=== PATIENT | female | born 1995 | race Caucasian/White ===

== ENCOUNTER 2016-10-26 15:08 | Outpatient (CLI) | payer MEDICAID ==
[2016-10-26 15:59] LABS: ABSOLUTE LYMPHOCYTES (AUTO) 1.9 10^3/uL (0.5-4.7); ABSOLUTE MONOCYTES (AUTO) 0.5 10^3/uL (0.1-1.4); ABSOLUTE NEUT (AUTO) 9.6 10^3/uL (1.7-8.2); BASOPHILS % (AUTO) 0.2 % (0-2); EOSINOPHILS % (AUTO) 0.3 % (0-6); HEMATOCRIT 33.6 % (36.0-47.0); HEMOGLOBIN 11.4 g/dL (12.0-15.5); HGB HCT DIFFERENCE 0.6; LYMPHOCYTES % (AUTO) 15.3 % (13-45); MEAN CORPUSCULAR HEMOGLOBIN 27.4 pg (27.0-33.4); MEAN CORPUSCULAR VOLUME 81 fl (80-97); MONOCYTES % (AUTO) 4.5 % (3-13); RED BLOOD COUNT 4.16 10^6/uL (3.72-5.28); RED CELL DISTRIBUTION WIDTH 13.6 % (11.5-14.0); SEGMENTED NEUTROPHILS % (AUTO) 79.7 % (42-78); WHITE BLOOD COUNT 12.1 10^3/uL (4.0-10.5)
[2016-10-26 16:13] LABS: APPEARANCE,URINE SLIGHTLY-CLOUDY; BILIRUBIN,URINE NEGATIVE (NEGATIVE); GLUCOSE, URINE NEGATIVE (NEGATIVE); KETONES,URINE NEGATIVE (NEGATIVE); LEUKOCYTE ESTERASE,URINE LARGE (NEGATIVE); NITRITE,URINE NEGATIVE (NEGATIVE); PROTEIN,URINE NEGATIVE (NEGATIVE); URINE SPECIFIC GRAVITY 1.011; UROBILINOGEN,URINE NEGATIVE mg/dL (<2.0)
[2016-10-26 16:16] LABS: ALANINE AMINOTRANSFERASE 26 U/L (9-52); ALBUMIN 3.7 g/dL (3.5-5.0); ALKALINE PHOSPHATASE 108 U/L (38-126); ANION GAP 14 (5-19); ASPARTATE AMINO TRANSFERASE 14 U/L (14-36); BILIRUBIN,DIRECT 0.2 mg/dL (0.0-0.4); BILIRUBIN,TOTAL 0.5 mg/dL (0.2-1.3); BLOOD UREA NITROGEN 5 mg/dL (7-20); CALCIUM 9.1 mg/dL (8.4-10.2); CARBON DIOXIDE 22 mmol/L (22-30); CHLORIDE 105 mmol/L (98-107); CREATININE RESULT 0.47 mg/dL (0.52-1.25); GLUCOSE 85 mg/dL (75-110); LDH 386 U/L (313-618); POTASSIUM 3.8 mmol/L (3.6-5.0); SODIUM 141.3 mmol/L (137-145); TOTAL PROTEIN 6.6 g/dL (6.3-8.2); URIC ACID 3.8 mg/dL (2.5-6.2)
[2016-10-26 16:23] LABS: URINE BARBITURATES SCREEN NEGATIVE; URINE METHADONE SCREEN NEGATIVE; URINE OPIATES LOW NEGATIVE; URINE PHENCYCLIDINE SCREEN NEGATIVE
--- NOTE | 2016-10-26 16:43 | Non Stress Test Report ---
Non Stress Test Datetime Report Generated by CPN: 10/26/2016 16:43 DEMOGRAPHIC EGA NST: 34.6 INDICATION Indication for Study: Other Indication for Study (NST) Other: pre-e workup MONITORING Monitor Explained: Monitor Explained; Test Explained; Patient Verbalized Understanding Time on Monitor: 10/26/2016 15:21 Time off Monitor: 10/26/2016 16:36 NST Duration: 75 NST INTERVENTIONS NST Interventions: None Physician Notified NST: Dr. Valenzuela BABY A: [id number] BABY A Movement : Present Contraction Frequency : none FHR Baseline : 140 Accelerations : 15X15 Decelerations : None Variability : Moderate 6-25bpm NST Review: Meets Criteria for Reactive NST NST Review and Verified By : Jake Barron RN NST Results: Reactive NST REPORT Report Trigger: Send Report
--- NOTE | 2016-10-26 19:50 | L&D Discharge Summary ---
OB Discharge Summary Datetime Report Generated by CPN: 10/26/2016 19:49 DISCHARGE DIAGNOSIS Diagnosis/Symptoms: Gestational Hypertension Diagnoses/Symptoms Other: IUP at 34.6, no pre-eclampsia Number of Babies in Womb: 1 Parity: 0 DIET/ACTIVITY/RESTRICTIONS Diet: Regular Activity: Normal Activity TEACHING/INSTRUCTIONS/REFERRALS Instructions Given To: patient and patient's mother Instructions Understood: Patient Verbalized Understanding; Support Person Verbalized Understanding Referrals: None Educational Materials- Other: kick counts, pre-eclampsia care notes given DISCHARGE INFORMATION Discharged AMA: No Discharge Date/Time: 10/26/2016 16:44 Discharged To: Home Discharge Provider Name: Chuy Petty CNM Accompanied By: mother and grandmother Discharge Method: Ambulatory Condition: Stable GENERAL INSTR-CALL PROVIDER IF: Contractions: Contractions or cramps become more frequent than 8 in one hour or 4 in 20 minutes; Regular painful contractions every 5 minutes or less for one hour. Time your contractions from the beginning of one to the beginning of the next Pressure: Pressure in your vagina or lower abdomen that may feel like the baby is pushing down Period Like Cramps: Period-like cramps or low dull backache that may come and go Cramps/Diarrhea: Abdominal cramps that may be accompanied by diarrhea Gush of Fluid/Blood: Gush of fluid or blood from your vagina (it is normal to have spotting after vaginal exam or intercourse) Vaginal Discharge: Change in the type or amount of vaginal discharge Decreased Movement: Your baby is not moving as much as usual- 4 movements in 1 hour after drinking and resting on side Temperature: Temperature greater than 100.0(F) orally
== END 2016-10-26 16:44 | disposition home or self-care (01) ==
LOC: LC 15:08
PROVIDERS: ATTEND Obstetrics & Gynecology
PROC: 4A1HXCZ Monitoring of Products of Conception, Cardiac Rate, External Approach (ICD-10-PCS; principal; 2016-10-26)
DX: O13.3 Gestational [pregnancy-induced] hypertension without significant proteinuria, third trimester (principal); Z3A.34 34 weeks gestation of pregnancy
CPT/HCPCS: 36415; 59025; 80053; 80307; 81001; 83615; 84550; 85025

== ENCOUNTER → 2016-11-01 | Outpatient (CLI) | payer MEDICAID ==
[2016-11-01 18:00] LABS: APPEARANCE,URINE SLIGHTLY-CLOUDY; BILIRUBIN,URINE NEGATIVE (NEGATIVE); GLUCOSE, URINE NEGATIVE (NEGATIVE); KETONES,URINE NEGATIVE (NEGATIVE); LEUKOCYTE ESTERASE,URINE LARGE (NEGATIVE); NITRITE,URINE NEGATIVE (NEGATIVE); PROTEIN,URINE NEGATIVE (NEGATIVE); URINE SPECIFIC GRAVITY 1.016; UROBILINOGEN,URINE NEGATIVE mg/dL (<2.0)
--- NOTE | 2016-11-01 18:02 | L&D Current Admission ---
Current Admit Datetime Report Generated by CPN: 11/01/2016 18:00 ADMISSION INFORMATION Chief Complaint: none (10/26/2016 15:36:HAWA Mclean
--- NOTE | 2016-11-01 18:02 | L&D General Admission ---
General Admit Datetime Report Generated by CPN: 11/01/2016 18:00 INFORMATION Patient Age: 21 (08/01/2016 12:26:QS system process) EDC: 12/01/2016 00:00 (10/26/2016 15:25:Priscila Barron RN) : 1 (10/26/2016 15:25:Priscila Barron RN) Para: 0 (10/26/2016 15:25:Priscila Barron RN) Term: 0 (10/26/2016 15:25:Priscila Barron RN) : 0 (10/26/2016 15:25:Priscila Barron RN) Spontaneous Abortions: 0 (10/26/2016 15:25:Priscila Barron RN) Induced Abortions: 0 (10/26/2016 15:25:Priscila Barron RN) Livin (10/26/2016 15:25:Priscila Barron RN) Cesareans: 0 (10/26/2016 15:25:Priscila Barron RN) VBACs: 0 (10/26/2016 15:25:Priscila Barron RN) Ectopic: 0 (10/26/2016 15:25:Priscila Barron RN) Multiple Births: 0 (10/26/2016 15:25:Priscila Barron RN) Baby, Number in Womb: 1 (10/26/2016 15:25:Priscila Barron RN) CARE Primary Electric Drill Operator: [facility] (10/26/2016 15:25:Priscila Barron RN) Month of 1st Visit: April (10/26/2016 15:25:Priscila Barron RN) Adequate Care: Yes (10/26/2016 15:25:Priscila Barron RN) Height (in): 69 (11/01/2016 17:38:QS system process) ALLERGIES Medication Allergy: No (10/26/2016 15:25:Priscila Barron RN) Medication Allergies: No Known Drug Allergies (11/01/2016) (11/01/2016 17:38:QS system process) Latex Allergy: No Latex Allergies (10/26/2016 15:25:Priscila Barron RN) Food Allergies: denies (10/26/2016 15:25:Priscila , RN) Environmental Allergies: denies (10/26/2016 15:25:Priscila Barron RN) COMMUNICATION Primary Language: Albanian (10/26/2016 15:25:Priscila Barron RN) Medical Tx Preferred Language: Albanian (10/26/2016 15:25:Priscila Barron RN) DEMOGRAPHICS Address: [address] [place] [id number] (08/01/2016 12:26:QS system process) Zipcode: [address] (08/01/2016 12:26:QS system process) Home (08/01/2016 12:26:QS system process) N: [phone] (08/01/2016 12:26:QS system process) Next of Kin Name: LIZA OBREGON (08/01/2016 12:26:QS system process) Next of Kin (08/01/2016 12:26:QS system process) Next of Kin Relationship: MO (08/01/2016 12:26:QS system process) Date of : 1995 (08/01/2016 12:26:QS system process) Marital Status: Single (08/01/2016 12:26:QS system process) Sex: Female (08/01/2016 12:26:QS system process) Race: (08/01/2016 12:26:QS system process) Ethnicity: Non- or (08/01/2016 12:26:QS system process) Adventism: Other (08/01/2016 12:26:QS system process) DRUG AND ALCOHOL USE Alcohol: No (10/26/2016 15:25:Priscila Barron RN) Marijuana: No (10/26/2016 15:25:Priscila Barron RN) Cocaine: No (10/26/2016 15:25:Priscila Barron RN) Other Illicit Drugs: No (10/26/2016 15:25:Priscila Barron RN) Tubal Ligation: No (10/26/2016 15:25:Priscila Barron RN) Tubal Authorization Signed: N/A (10/26/2016 15:25:Priscila Barron RN) Consent: N/A (10/26/2016 15:25:Priscila Barron RN) Consent Signed: N/A (10/26/2016 15:25:Priscila Barron RN) Cultural/Spritual Practice: No (10/26/2016 15:25:Priscila Barron RN) Spir/Cult Dietary Needs: No (10/26/2016 15:25:Priscila Barron RN) LABS Blood Type: O Positive (10/26/2016 15:25:Priscila Barron RN) Antibody Screen: negative (10/26/2016 15:25:Priscila Barron RN) Hemoglobin: 11.4 L (10/26/2016 15:50:QS system process) Hematocrit: 33.6 L (10/26/2016 15:50:QS system process) MCV: 81 (10/26/2016 15:50:QS system process) Gonorrhea: Negative (10/26/2016 15:25:Priscila Barron RN) Chlamydia: Negative (10/26/2016 15:25:rPiscila Barron RN) RPR/VDRL: Nonreactive (10/26/2016 15:25:Priscila Barron RN) Hepatitis B: Negative (10/26/2016 15:25:Priscila Barron RN) Rubella: Immune (10/26/2016 15:25:Priscila Barron RN) Rubella Titer: 8.71 (10/26/2016 15:25:Priscila Barron RN) Varicella Titer: 2699 (10/26/2016 15:25:Priscila Barron RN) OB/PREVIOUS HISTORY History of Previous : No (10/26/2016 15:25:Priscila Barron RN) History of Gestational Diabetes: No (10/26/2016 15:25:Priscila Barron RN) History of PIH: Yes (10/26/2016 15:25:Priscila Barron RN) History of Incompetent Cervix: No (10/26/2016 15:25:Priscila Barron RN) History of Placenta Previa/Abrup: No (10/26/2016 15:25:Priscila Barron RN) History of Macrosomia: No (10/26/2016 15:25:Priscila Barron RN) History of IUGR: No (10/26/2016 15:25:Priscila Barron RN) History of Hemorrhage: No (10/26/2016 15:25:Priscila Barron RN) History of Loss/Stillborn: No (10/26/2016 15:25:Priscila Barron RN) History of : No (10/26/2016 15:25:Priscila Barron RN) History of D (Rh) Sensitization: No (10/26/2016 15:25:Priscila Barron RN) History Recurrent Loss/Stillborn: No (10/26/2016 15:25:Priscila Barron RN) History Depression/PP Depression: No (10/26/2016 15:25:Priscila Barron RN) History of Uterine Anomaly/RUDDY: No (10/26/2016 15:25:Priscila Barron RN) History of Infertility: No (10/26/2016 15:25:Priscila Barron RN) History of ART Treatment: No (10/26/2016 15:25:Priscila Barron RN) History of RUDDY: No (10/26/2016 15:25:Priscila Barron RN) Comments Obstetrical History: G1: current (10/26/2016 15:25:Priscila Barron RN) MEDICAL HISTORY Med Hx Diabetes: No (10/26/2016 15:25:Priscila Barron RN) Med Hx Hypertension: No (10/26/2016 15:25:Priscila Barron RN) Med Hx Heart Disease: No (10/26/2016 15:25:Priscila Barron RN) Med Hx Autoimmune Disorder: No (10/26/2016 15:25:Priscila Barron RN) Med Hx Kidney Disease/UTI: No (10/26/2016 15:25:Priscila Barron RN) Med Hx Neurologic/Epilepsy: No (10/26/2016 15:25:Priscila Barron RN) Med Hx Psychiatric Disorders: No (10/26/2016 15:25:Priscila Barron RN) Med Hx Hepatitis/Liver Disease: No (10/26/2016 15:25:Priscila Barron RN) Med Hx Varicosities/Phlebitis: No (10/26/2016 15:25:Priscila Barron RN) Med Hx Thyroid Dysfunction: No (10/26/2016 15:25:Priscila Barron RN) Med Hx Trauma/Violence: No (10/26/2016 15:25:Priscila Barron RN) Med Hx Blood Transfusion: No (10/26/2016 15:25:Priscila Barron RN) Med Hx Pulmonary (Asthma,TB): No (10/26/2016 15:25:Priscila Barron RN) Med Hx Breast: No (10/26/2016 15:25:Priscila Barron RN) Med Hx PLASTIC DOLLS MOLD FILLER Surgery: No (10/26/2016 15:25:Priscila Barron RN) Med Hx Hospitalization/Surgery: No (10/26/2016 15:25:Priscila Barron RN) Med Hx Anesthetic Complications: No (10/26/2016 15:25:Priscila Barron RN) Med Hx Abnormal Pap Smear: No (10/26/2016 15:25:Priscila Barron RN) Other Medical Diseases: No (10/26/2016 15:25:Priscila Barron RN) Med Hx Significant Family Hx: No (10/26/2016 15:25:Priscila Barron RN) INFECTIOUS HISTORY Inf Hx Gonorrhea: No (10/26/2016 15:25:Priscila Barron RN) Inf Hx Chlamydia: No (10/26/2016 15:25:Priscila Barron RN) Inf Hx Syphilis: No (10/26/2016 15:25:Priscila Barron RN) Inf Hx HIV/AIDS: No (10/26/2016 15:25:Priscila Barron RN) Inf Hx Human Papilloma Virus: No (10/26/2016 15:25:Priscila Barron RN) Inf Hx Pt/Partner Genital Herpes: No (10/26/2016 15:25:Priscila Barron RN) Inf Hx Tuberculosis/Exposure: No (10/26/2016 15:25:Priscila Barron RN) Inf Hx Hepatitis B,C: No (10/26/2016 15:25:Priscila Barron RN) Inf Hx Rash or Viral Illness: No (10/26/2016 15:25:Priscila Barron RN) GENETIC HISTORY Gen Hx Age >=35 at MARS: No (10/26/2016 15:25:Priscila Barron RN) Gen Hx Thalassemia: No (10/26/2016 15:25:Priscila Barron RN) Gen Hx Congenital Heart Defect: No (10/26/2016 15:25:Priscila Barron RN) Gen Hx Neural Tube Defect: No (10/26/2016 15:25:Priscila Barron RN) Gen Hx Down's Syndrome: No (10/26/2016 15:25:Priscila Barron RN) Gen Hx Monroe-Sachs: No (10/26/2016 15:25:Priscila Barron RN) Gen Hx Wiley: No (10/26/2016 15:25:Priscila Barron RN) Gen Hx Familial Dysautonomia: No (10/26/2016 15:25:Priscila Barron RN) Gen Hx Sickle Cell Disease/Trait: No (10/26/2016 15:25:Priscila Barron RN) Gen Hx Hemophilia/Blood Disorder: No (10/26/2016 15:25:Priscila Barron RN) Gen Hx Muscular Dystrophy: No (10/26/2016 15:25:Priscila Barron RN) Gen Hx Cystic Fibrosis: No (10/26/2016 15:25:Priscila Barron RN) Gen Hx Huntingtons Chorea: No (10/26/2016 15:25:Priscila Barron RN) Gen Hx Mental Retardation/Autism: No (10/26/2016 15:25:Priscila Barron RN) Gen Hx Tested for Fragile X: No (10/26/2016 15:25:Priscila Barron RN) Gen Hx Other Inher/Chromosomal: No (10/26/2016 15:25:Priscila Barron RN) Gen Hx Maternal Metabolic DO: No (10/26/2016 15:25:Priscila Barron RN) Gen Hx Pt Father or FOB Defect: No (10/26/2016 15:25:Priscila Barron RN) Gen Hx Other Genetic History: No (10/26/2016 15:25:Priscila Barron RN) Gen Hx Drugs/Meds since LMP: No (10/26/2016 15:25:Priscila Barron RN)
[2016-11-01 18:11] LABS: ABSOLUTE MONOCYTES (AUTO) 0.5 10^3/uL (0.1-1.4); ABSOLUTE NEUT (AUTO) 10.1 10^3/uL (1.7-8.2); BASOPHILS % (AUTO) 0.3 % (0-2); EOSINOPHILS % (AUTO) 0.2 % (0-6); HEMATOCRIT 33.9 % (36.0-47.0); HEMOGLOBIN 11.5 g/dL (12.0-15.5); HGB HCT DIFFERENCE 0.6; LYMPHOCYTES % (AUTO) 15.8 % (13-45); MEAN CORPUSCULAR HEMOGLOBIN 27.5 pg (27.0-33.4); MEAN CORPUSCULAR VOLUME 81 fl (80-97); MONOCYTES % (AUTO) 4.1 % (3-13); RED BLOOD COUNT 4.19 10^6/uL (3.72-5.28); RED CELL DISTRIBUTION WIDTH 13.7 % (11.5-14.0); SEGMENTED NEUTROPHILS % (AUTO) 79.6 % (42-78); WHITE BLOOD COUNT 12.7 10^3/uL (4.0-10.5)
[2016-11-01 18:14] LABS: URINE BARBITURATES SCREEN NEGATIVE; URINE METHADONE SCREEN NEGATIVE; URINE OPIATES LOW NEGATIVE; URINE PHENCYCLIDINE SCREEN NEGATIVE
[2016-11-01 18:28] LABS: ALANINE AMINOTRANSFERASE 21 U/L (9-52); ALKALINE PHOSPHATASE 127 U/L (38-126); ANION GAP 13 (5-19); ASPARTATE AMINO TRANSFERASE 15 U/L (14-36); BILIRUBIN,DIRECT 0.1 mg/dL (0.0-0.4); BILIRUBIN,TOTAL 0.4 mg/dL (0.2-1.3); BLOOD UREA NITROGEN 4 mg/dL (7-20); CALCIUM 9.5 mg/dL (8.4-10.2); CARBON DIOXIDE 21 mmol/L (22-30); CHLORIDE 107 mmol/L (98-107); CREATININE RESULT 0.43 mg/dL (0.52-1.25); GLUCOSE 104 mg/dL (75-110); LDH 398 U/L (313-618); POTASSIUM 3.4 mmol/L (3.6-5.0); SODIUM 141.1 mmol/L (137-145); TOTAL PROTEIN 6.7 g/dL (6.3-8.2); URIC ACID 3.6 mg/dL (2.5-6.2)
--- NOTE | 2016-11-01 20:01 | L&D Flow Sheet ---
LD Flowsheet Datetime Report Generated by CPN: 11/01/2016 20:00 Datetime: 11/01/2016 18:25 NBP Sys/Angela/Mean (mmHg): 136 (QS system process) : 82 (QS system process) : 102 (QS system process) Pulse: 104 (QS system process) LaborFlag: OB Triage (QS system process) Datetime: 11/01/2016 18:10 NBP Sys/Angela/Mean (mmHg): 133 (QS system process) : 76 (QS system process) : 99 (QS system process) Pulse: 98 (QS system process) LaborFlag: OB Triage (QS system process) Datetime: 11/01/2016 17:55 NBP Sys/Angela/Mean (mmHg): 129 (QS system process) : 78 (QS system process) : 100 (QS system process) Pulse: 101 (QS system process) LaborFlag: OB Triage (QS system process) Datetime: 11/01/2016 17:40 NBP Sys/Angela/Mean (mmHg): 150 (QS system process) : 79 (QS system process) : 109 (QS system process) Pulse: 100 (QS system process) LaborFlag: OB Triage (QS system process) Datetime: 11/01/2016 17:25 Monitor Interventions for UA: [place] Adjusted (Priscila Barron RN) Frequency (min): none (Priscila Barron RN) Monitor Mode: External US (Priscila Barron RN) Pain Scale: 0 (Priscila Barron RN) Pain Presence: None/Denies (Priscila Barron RN) Pain Type: N/A (Priscila Barron RN) Pain Goal: 1 (Priscila Barron RN) Membrane Status: Intact (Annotations: intact per patient) (Priscila Barron RN) Vaginal Bleeding: None (Priscila Barron RN) Level of Consciousness: Fully Conscious (Priscila Barron RN) DTR's/Clonus: DTRs 2+; No Clonus (Priscila Barron RN) Headache: Denies (Priscila Barron RN) Breath Sounds, Left: Clear and Equal (Priscila Barron RN) Breath Sounds, Right: Clear and Equal (Priscila Barron RN) Nausea/Vomiting: Denies (Priscila Barron RN) RUQ Epigastric Pain: Denies (Priscila Barron, JIM) Oxygen Method: Room Air (Priscila Barron, RN) Patient Position/Activity: Right Tilt (Priscila Barron RN) Plan of Care: Plan of Care Discussed (Priscila Barron RN) Unit Routine: [place] to Room; Call [place]; Bed (Priscila Barron RN) LaborFlag: OB Triage (QS system process) Datetime: 11/01/2016 17:24 NBP Sys/Angela/Mean (mmHg): 155 (QS system process) : 92 (QS system process) : 117 (QS system process) Pulse: 114 (QS system process) Communication Comments: patient sent from [facility] for pre-eclampia workup. Patient's NST was reactive in office, order received from Rio Morillo CNM for patient to be left off monitor. Order placed for pre-eclampia labs and serial blood pressures (Priscila Barron RN) LaborFlag: OB Triage (QS system process) Datetime: 11/01/2016 17:00 Stage of : OB Triage (Priscila Barron RN)
== END ==
LOC: LC 17:08
PROVIDERS: ATTEND Obstetrics & Gynecology
PROC: 4A1HXCZ Monitoring of Products of Conception, Cardiac Rate, External Approach (ICD-10-PCS; principal; 2016-11-01)
DX: Z34.93 Encounter for supervision of normal pregnancy, unspecified, third trimester (principal); Z36 Encounter for antenatal screening of mother; Z3A.35 35 weeks gestation of pregnancy
CPT/HCPCS: 36415; 80053; 80307; 81001; 83615; 84550; 85025

== ENCOUNTER 2016-11-09 22:05 | Inpatient (IN) | payer MEDICAID ==
[2016-11-09 22:48] LABS: ABSOLUTE EOSINOPHILS # (AUTO) 0.1 10^3/uL (0.0-0.6); ABSOLUTE LYMPHOCYTES (AUTO) 1.6 10^3/uL (0.5-4.7); ABSOLUTE MONOCYTES (AUTO) 0.8 10^3/uL (0.1-1.4); ABSOLUTE NEUT (AUTO) 9.1 10^3/uL (1.7-8.2); BASOPHILS % (AUTO) 0.1 % (0-2); EOSINOPHILS % (AUTO) 0.7 % (0-6); HEMATOCRIT 32.7 % (36.0-47.0); HGB HCT DIFFERENCE 0.3; LYMPHOCYTES % (AUTO) 13.7 % (13-45); MEAN CORPUSCULAR HEMOGLOBIN 26.9 pg (27.0-33.4); MEAN CORPUSCULAR HGB CONC 33.5 g/dL (32.0-36.0); MEAN CORPUSCULAR VOLUME 80 fl (80-97); MONOCYTES % (AUTO) 7.2 % (3-13); RED BLOOD COUNT 4.07 10^6/uL (3.72-5.28); RED CELL DISTRIBUTION WIDTH 13.3 % (11.5-14.0); SEGMENTED NEUTROPHILS % (AUTO) 78.3 % (42-78); WHITE BLOOD COUNT 11.6 10^3/uL (4.0-10.5)
[2016-11-09 22:57] LABS: APPEARANCE,URINE CLOUDY; BILIRUBIN,URINE NEGATIVE (NEGATIVE); GLUCOSE, URINE NEGATIVE (NEGATIVE); KETONES,URINE NEGATIVE (NEGATIVE); LEUKOCYTE ESTERASE,URINE MODERATE (NEGATIVE); NITRITE,URINE NEGATIVE (NEGATIVE); PROTEIN,URINE NEGATIVE (NEGATIVE); URINE SPECIFIC GRAVITY 1.016; UROBILINOGEN,URINE NEGATIVE mg/dL (<2.0)
[2016-11-09 23:12] LABS: URINE BARBITURATES SCREEN NEGATIVE; URINE METHADONE SCREEN NEGATIVE; URINE OPIATES LOW NEGATIVE; URINE PHENCYCLIDINE SCREEN NEGATIVE
[2016-11-09] MEDS ORDERED: ZOLPIDEM TARTRATE 5 MG TABLET PO PRN (23:19)
[2016-11-09] MEDS ORDERED: DINOPROSTONE 10 MG VAGINAL INSERT.SR PV ONE (23:19)
[2016-11-09] MEDS ORDERED: MAG HYDROX/AL HYDROX/SIMETH SUSP 30 ML UDCUP PO PRN (23:19)
[2016-11-09] MEDS ORDERED: OXYTOCIN/NORMAL SALINE 1,000 ML IV PRN (23:19)
[2016-11-09] MEDS ORDERED: ACETAMINOPHEN 325 MG TABLET PO PRN (23:19)
[2016-11-09] MEDS ORDERED: DINOPROSTONE 10 MG VAGINAL INSERT.SR ONE (23:20)
[2016-11-09] MEDS: RINGERS SOLUTION,LACTATED 1,000 ML IV PRN (23:42)
[2016-11-09] MEDS ORDERED: RINGERS SOLUTION,LACTATED 300 ML IV ONE (23:45)
[2016-11-10] MEDS ORDERED: PENICILLIN G-K 5 MILLION UNIT VIAL IV ONE (06:28)
[2016-11-10] MEDS ORDERED: PENICILLIN G-K 5 MILLION UNIT VIAL ONE ×2 (06:35→10:34)
[2016-11-10] MEDS: RINGERS SOLUTION,LACTATED 1,000 ML IV PRN (06:40)
--- NOTE | 2016-11-10 08:01 | L&D Flow Sheet ---
LD Flowsheet Datetime Report Generated by CPN: 11/10/2016 08:00 Datetime: 11/10/2016 07:54 Hygiene: Underpad Changed (Milagros Camp, RNC) I/O Interventions: Up to BR (Milagros Camp, RNC) Datetime: 11/10/2016 07:52 Monitor Interventions for FHR: Ultrasound Adjusted (Milagros Camp, RNC) Comments: RN at bedside adjusting monitor, bladder distention noted. (Milagros Camp, RNC) Datetime: 11/10/2016 07:30 Monitor Mode: External; Palpation (Priscila Barron, RN) Frequency (min): 6-8 (Priscila Barron, RN) Quality: Mild (Priscila , RN) Duration (sec): 70-80 (Priscila , RN) Duration Criteria: Less than Two 120 Second Contractions (Priscila , RN) Pattern: Normal: <= 5 Contractions in 10 Minutes (Priscila , RN) Resting Tone (Palpate): Relaxed (Priscilaabby Barron, RN) Contraction Comments: irritability (Priscila Barron, RN) Monitor Mode: External US (Priscila Barron, RN) FHR Baseline Rate : 140 (Priscila , RN) FHR Baseline Changes: No Baseline Change (Priscila , RN) Variability: Moderate 6-25 bpm (Priscila , RN) Accelerations: 10X10 (Priscila , RN) Decelerations: None (Priscila , RN) Datetime: 11/10/2016 07:29 Level of Consciousness: Fully Conscious (Priscila Barron, RN) DTR's/Clonus: DTRs 2+; No Clonus (Priscila , RN) Headache: Denies (Priscila Barron RN) Breath Sounds, Left: Clear and Equal (Priscila Barron RN) Breath Sounds, Right: Clear and Equal (Priscila Barron RN) Nausea/Vomiting: Denies (Priscila Barron RN) RUQ Epigastric Pain: Denies (Priscila Barron, RN) Datetime: 11/10/2016 07:28 NBP Sys/Angela/Mean (mmHg): 108 (QS system process) : 57 (QS system process) : 79 (QS system process) Pulse: 87 (QS system process) LaborFlag: Labor (QS system process) Datetime: 11/10/2016 07:17 Communication: Report Given to @ Annika Barron RN (Petra Torres RN) Datetime: 11/10/2016 07:00 Monitor Mode: External (Petra Ledgerwood, RN) Frequency (min): occas (Petra Ledgerwood, RN) Quality: Mild (Petra Ledgerwood, RN) Duration (sec): 60-80 (Petra Ledgerwood, RN) Duration Criteria: Less than Two 120 Second Contractions (Petra Ledgerwood, RN) Pattern: Normal: <= 5 Contractions in 10 Minutes (Petra Ledgerwood, RN) Resting Tone (Palpate): Relaxed (Petra Ledgerwood, RN) Monitor Mode: External US (Petra Ledgerwood, RN) FHR Baseline Rate : 145 (Petra Ledgerwood, RN) FHR Baseline Changes: No Baseline Change (Petra Ledgerwood, RN) Variability: Moderate 6-25 bpm (Petra Ledgerwood, RN) Accelerations: 15X15 (Petra Ledgerwood, RN) Decelerations: None (Petra Ledgerwood, RN) Datetime: 11/10/2016 06:57 NBP Sys/Angela/Mean (mmHg): 109 (QS system process) : 52 (QS system process) : 74 (QS system process) Pulse: 90 (QS system process) LaborFlag: Labor (QS system process) Datetime: 11/10/2016 06:40 Antibiotics: Penicillin IV (Units) @ [id number] (Petra Ledgerwood, RN) Datetime: 11/10/2016 06:30 Monitor Mode: External (Petra Ledgerwood, RN) Frequency (min): x1 (Petra Ledgerwood, RN) Quality: Mild (Petra Ledgerwood, RN) Duration (sec): 90 (Petra Ledgerwood, RN) Duration Criteria: Less than Two 120 Second Contractions (Petra Ledgerwood, RN) Resting Tone (Palpate): Relaxed (Petra Ledgerwood, RN) Monitor Mode: External US (Petra Ledgerwood, RN) FHR Baseline Rate : 135 (Petra Ledgerwood, RN) FHR Baseline Changes: No Baseline Change (Petra Ledgerwood, RN) Variability: Moderate 6-25 bpm (Petra Ledgerwood, RN) Accelerations: 15X15 (Petra Ledgerwood, RN) Decelerations: None (Petra Ledgerwood, RN) Datetime: 11/10/2016 06:27 NBP Sys/Angela/Mean (mmHg): 103 (QS system process) : 58 (QS system process) : 75 (QS system process) Pulse: 93 (QS system process) Respirations: 14 (Petra Ledgerwood, RN) LaborFlag: Labor (QS system process) Datetime: 11/10/2016 06:00 Monitor Mode: External (Petra Ledgerwood, RN) Frequency (min): none (Petra Ledgerwood, RN) Resting Tone (Palpate): Relaxed (Petra Ledgerwood, RN) Monitor Mode: External US (Petra Ledgerwood, RN) FHR Baseline Rate : 130 (Petra Ledgerwood, RN) FHR Baseline Changes: No Baseline Change (Petra Ledgerwood, RN) Variability: Moderate 6-25 bpm (Petra Ledgerwood, RN) Accelerations: None (Petra Ledgerwood, RN) Decelerations: None (Petra Ledgerwood, RN) Datetime: 11/10/2016 05:57 NBP Sys/Angela/Mean (mmHg): 107 (QS system process) : 57 (QS system process) : 77 (QS system process) Pulse: 89 (QS system process) LaborFlag: Labor (QS system process) Datetime: 11/10/2016 05:30 Monitor Mode: External (Petra Ledgerwood, RN) Frequency (min): occas (Petra Ledgerwood, RN) Quality: Mild (Petra Ledgerwood, RN) Duration (sec): 60-70 (Petra Ledgerwood, RN) Duration Criteria: Less than Two 120 Second Contractions (Petra Ledgerwood, RN) Pattern: Normal: <= 5 Contractions in 10 Minutes (Petra Ledgerwood, RN) Resting Tone (Palpate): Relaxed (Petra Ledgerwood, RN) Monitor Mode: External US (Petra Ledgerwood, RN) FHR Baseline Rate : 125 (Petra Ledgerwood, RN) FHR Baseline Changes: No Baseline Change (Petra Ledgerwood, RN) Variability: Moderate 6-25 bpm (Petra Ledgerwood, RN) Accelerations: 10X10 (Petra Ledgerwood, RN) Decelerations: None (Petra Ledgerwood, RN) Datetime: 11/10/2016 05:27 NBP Sys/Angela/Mean (mmHg): 109 (QS system process) : 56 (QS system process) : 76 (QS system process) Pulse: 90 (QS system process) LaborFlag: Labor (QS system process) Datetime: 11/10/2016 05:00 Monitor Mode: External (Petra Ledgerwood, RN) Frequency (min): irritability (Petra Ledgerwood, RN) Quality: Mild (Petra Ledgerwood, RN) Resting Tone (Palpate): Relaxed (Petra Ledgerwood, RN) Monitor Mode: External US (Petra Ledgerwood, RN) FHR Baseline Rate : 135 (Petra Ledgerwood, RN) FHR Baseline Changes: No Baseline Change (Petra Ledgerwood, RN) Variability: Moderate 6-25 bpm (Petra Ledgerwood, RN) Accelerations: 15X15 (Petra Ledgerwood, RN) Decelerations: None (Petra Ledgerwood, RN) Datetime: 11/10/2016 04:57 NBP Sys/Angela/Mean (mmHg): 120 (QS system process) : 58 (QS system process) : 83 (QS system process) Pulse: 90 (QS system process) LaborFlag: Labor (QS system process) Datetime: 11/10/2016 04:30 Monitor Mode: External (Petra Ledgerwood, RN) Frequency (min): occas (Petra Ledgerwood, RN) Quality: Mild (Petra Ledgerwood, RN) Duration (sec): 60-80 (Petra Ledgerwood, RN) Duration Criteria: Less than Two 120 Second Contractions (Petra Ledgerwood, RN) Pattern: Normal: <= 5 Contractions in 10 Minutes (Petra Ledgerwood, RN) Resting Tone (Palpate): Relaxed (Petra Ledgerwood, RN) Monitor Mode: External US (Petra Ledgerwood, RN) FHR Baseline Rate : 130 (Petra Ledgerwood, RN) FHR Baseline Changes: No Baseline Change (Petra Ledgerwood, RN) Variability: Moderate 6-25 bpm (Petra Ledgerwood, RN) Accelerations: 15X15 (Petra Ledgerwood, RN) Decelerations: None (Petra Ledgerwood, RN) Datetime: 11/10/2016 04:27 NBP Sys/Angela/Mean (mmHg): 113 (QS system process) : 65 (QS system process) : 82 (QS system process) Pulse: 86 (QS system process) LaborFlag: Labor (QS system process) Datetime: 11/10/2016 04:00 Monitor Mode: External (Petra Ledgerwood, RN) Frequency (min): none (Petra Ledgerwood, RN) Resting Tone (Palpate): Relaxed (Petra Ledgerwood, RN) Monitor Mode: External US (Petra Ledgerwood, RN) FHR Baseline Rate : 125 (Petra Ledgerwood, RN) FHR Baseline Changes: No Baseline Change (Petra Ledgerwood, RN) Variability: Moderate 6-25 bpm (Petra Ledgerwood, RN) Accelerations: 15X15 (Petra Ledgerwood, RN) Decelerations: None (Petra Ledgerwood, RN) Datetime: 11/10/2016 03:57 NBP Sys/Angela/Mean (mmHg): 118 (QS system process) : 57 (QS system process) : 82 (QS system process) Pulse: 86 (QS system process) LaborFlag: Labor (QS system process) Datetime: 11/10/2016 03:30 Monitor Mode: External (Petra Ledgerwood, RN) Frequency (min): irritability (Petra Ledgerwood, RN) Quality: Mild (Petra Ledgerwood, RN) Resting Tone (Palpate): Relaxed (Petra Ledgerwood, RN) Monitor Mode: External US (Petra Ledgerwood, RN) FHR Baseline Rate : 125 (Petra Ledgerwood, RN) FHR Baseline Changes: No Baseline Change (Petra Ledgerwood, RN) Variability: Moderate 6-25 bpm (Petra Ledgerwood, RN) Accelerations: 10X10 (Petra Ledgerwood, RN) Decelerations: None (Petra Ledgerwood, RN) Datetime: 11/10/2016 03:28 NBP Sys/Angela/Mean (mmHg): 118 (QS system process) : 58 (QS system process) : 81 (QS system process) Pulse: 85 (QS system process) LaborFlag: Labor (QS system process) Datetime: 11/10/2016 03:00 Monitor Mode: External (Petra Ledgerwood, RN) Frequency (min): occas (Petra Ledgerwood, RN) Quality: Mild (Petra Ledgerwood, RN) Duration (sec): 60-70 (Petra Ledgerwood, RN) Duration Criteria: Less than Two 120 Second Contractions (Petar Ledgerwood, RN) Pattern: Normal: <= 5 Contractions in 10 Minutes (Petra Ledgerwood, RN) Resting Tone (Palpate): Relaxed (Petra Ledgerwood, RN) Contraction Comments: occasional contractions with uteral irritability (Petra Ledgerwood, RN) Monitor Mode: External US (Petra Ledgerwood, RN) FHR Baseline Rate : 120 (Petra Ledgerwood, RN) FHR Baseline Changes: No Baseline Change (Petra Ledgerwood, RN) Variability: Moderate 6-25 bpm (Petra Ledgerwood, RN) Accelerations: 10X10 (Petra Ledgerwood, RN) Decelerations: None (Petra Ledgerwood, RN) Datetime: 11/10/2016 02:57 NBP Sys/Angela/Mean (mmHg): 119 (QS system process) : 57 (QS system process) : 81 (QS system process) Pulse: 90 (QS system process) LaborFlag: Labor (QS system process) Datetime: 11/10/2016 02:30 Monitor Mode: External (Petra Ledgerwood, RN) Frequency (min): irreg (Petra Ledgerwood, RN) Quality: Mild (Petra Ledgerwood, RN) Duration (sec): 60-90 (Petra Ledgerwood, RN) Duration Criteria: Less than Two 120 Second Contractions (Petra Ledgerwood, RN) Pattern: Normal: <= 5 Contractions in 10 Minutes (Petra Ledgerwood, RN) Resting Tone (Palpate): Relaxed (Petra Ledgerwood, RN) Monitor Mode: External US (Petra Ledgerwood, RN) FHR Baseline Rate : 140 (Petra Ledgerwood, RN) FHR Baseline Changes: No Baseline Change (Petra Ledgerwood, RN) Variability: Moderate 6-25 bpm (Petra Ledgerwood, RN) Accelerations: 15X15 (Petra Ledgerwood, RN) Decelerations: None (Petra Ledgerwood, RN) Datetime: 11/10/2016 02:27 NBP Sys/Angela/Mean (mmHg): 118 (QS system process) : 67 (QS system process) : 87 (QS system process) Pulse: 86 (QS system process) LaborFlag: Labor (QS system process) Datetime: 11/10/2016 02:00 Monitor Mode: External (Petra Ledgerwood, RN) Frequency (min): irreg (Petra Ledgerwood, RN) Quality: Mild (Petra Ledgerwood, RN) Duration (sec): 70-80 (Petra Ledgerwood, RN) Duration Criteria: Less than Two 120 Second Contractions (Petra Ledgerwood, RN) Pattern: Normal: <= 5 Contractions in 10 Minutes (Petra Ledgerwood, RN) Resting Tone (Palpate): Relaxed (Petra Ledgerwood, RN) Monitor Mode: External US (Petra Ledgerwood, RN) FHR Baseline Rate : 130 (Petra Ledgerwood, RN) FHR Baseline Changes: No Baseline Change (Petra Ledgerwood, RN) Variability: Moderate 6-25 bpm (Petra Ledgerwood, RN) Accelerations: 15X15 (Petra Ledgerwood, RN) Decelerations: None (Petra Ledgerwood, RN) Datetime: 11/10/2016 01:57 NBP Sys/Angela/Mean (mmHg): 116 (QS system process) : 61 (QS system process) : 82 (QS system process) Pulse: 87 (QS system process) LaborFlag: Labor (QS system process) Datetime: 11/10/2016 01:30 Monitor Mode: External (Petra Ledgerwood, RN) Frequency (min): irreg (Petra Ledgerwood, RN) Quality: Mild (Petra Ledgerwood, RN) Duration (sec): 60-80 (Petra Ledgerwood, RN) Duration Criteria: Less than Two 120 Second Contractions (Petra Ledgerwood, RN) Pattern: Normal: <= 5 Contractions in 10 Minutes (Petra Ledgerwood, RN) Resting Tone (Palpate): Relaxed (Petra Ledgerwood, RN) Monitor Mode: External US (Petra Ledgerwood, RN) FHR Baseline Rate : 135 (Petra Ledgerwood, RN) FHR Baseline Changes: No Baseline Change (Petra Ledgerwood, RN) Variability: Moderate 6-25 bpm (Petra Ledgerwood, RN) Accelerations: 15X15 (Petra Ledgerwood, RN) Decelerations: None (Petra Ledgerwood, RN) Datetime: 11/10/2016 01:28 NBP Sys/Angela/Mean (mmHg): 116 (QS system process) : 65 (QS system process) : 83 (QS system process) Pulse: 90 (QS system process) LaborFlag: Labor (QS system process) Datetime: 11/10/2016 01:00 Monitor Mode: External (Petra Ledgerwood, RN) Frequency (min): irreg (Petra Ledgerwood, RN) Quality: Mild (Petra Ledgerwood, RN) Duration (sec): 50-90 (Petra Ledgerwood, RN) Duration Criteria: Less than Two 120 Second Contractions (Petra Ledgerwood, RN) Pattern: Normal: <= 5 Contractions in 10 Minutes (Petra Ledgerwood, RN) Resting Tone (Palpate): Relaxed (Petra Ledgerwood, RN) Monitor Mode: External US (Petra Ledgerwood, RN) FHR Baseline Rate : 130 (Petra Ledgerwood, RN) FHR Baseline Changes: No Baseline Change (Petra Ledgerwood, RN) Variability: Moderate 6-25 bpm (Petra Ledgerwood, RN) Accelerations: 10X10 (Petra Ledgerwood, RN) Decelerations: None (Petra Ledgerwood, RN) Datetime: 11/10/2016 00:57 NBP Sys/Angela/Mean (mmHg): 113 (QS system process) : 55 (QS system process) : 74 (QS system process) Pulse: 86 (QS system process) LaborFlag: Labor (QS system process) Datetime: 11/10/2016 00:30 Monitor Mode: External (Petra Ledgerwood, RN) Frequency (min): x2 (Petra Ledgerwood, RN) Quality: Mild (Petra Ledgerwood, RN) Duration (sec): 80-90 (Petra Ledgerwood, RN) Duration Criteria: Less than Two 120 Second Contractions (Petra Ledgerwood, RN) Pattern: Normal: <= 5 Contractions in 10 Minutes (Petra Ledgerwood, RN) Resting Tone (Palpate): Relaxed (Petra Ledgerwood, RN) Monitor Mode: External US (Petra Ledgerwood, RN) FHR Baseline Rate : 135 (Petra Ledgerwood, RN) FHR Baseline Changes: No Baseline Change (Petra Ledgerwood, RN) Variability: Moderate 6-25 bpm (Petra Ledgerwood, RN) Accelerations: 10X10 (Petra Ledgerwood, RN) Decelerations: None (Petra Ledgerwood, RN) Datetime: 11/10/2016 00:29 NBP Sys/Angela/Mean (mmHg): 109 (QS system process) : 75 (QS system process) : 87 (QS system process) Pulse: 94 (QS system process) LaborFlag: Labor (QS system process) Datetime: 11/10/2016 00:24 Patient Care Comments: Ultrasound performed on pt. to verify that baby is in vertex position. (Petra Ledgerwood, RN) Datetime: 11/10/2016 00:23 Communication: Provider at Bedside (Petra Ledgerwood, RN) Communication Comments: Dr Dietrich at bedside (Petra Ledgerwood, RN) Datetime: 11/10/2016 00:00 Monitor Mode: External (Petra Ledgerwood, RN) Frequency (min): none (Petra Ledgerwood, RN) Resting Tone (Palpate): Relaxed (Petra Ledgerwood, RN) Monitor Mode: External US (Petra Ledgerwood, RN) FHR Baseline Rate : 135 (Petra Ledgerwood, RN) FHR Baseline Changes: No Baseline Change (Petra Ledgerwood, RN) Variability: Moderate 6-25 bpm (Petra Ledgerwood, RN) Accelerations: 10X10 (Petra Ledgerwood, RN) Decelerations: None (Petra Ledgerwood, RN) Datetime: 11/09/2016 23:57 NBP Sys/Angela/Mean (mmHg): 137 (QS system process) : 85 (QS system process) : 104 (QS system process) Pulse: 96 (QS system process) LaborFlag: Labor (QS system process) Datetime: 11/09/2016 23:35 Cervical Ripening Agents: Cervidil (Petra Torres, RN) Datetime: 11/09/2016 23:34 Dilatation (cm): 0.5 (Petra Torres, RN) Effacement (%): 50 (Petra Torres, RN) Station: -2 (Petra Torres, RN) Exam by: Leonarda Torres RN (Petra Torres, RN) Datetime: 11/09/2016 23:30 Monitor Mode: External (Petra Ledgerwood, RN) Frequency (min): none (Petra Ledgerwood, RN) Resting Tone (Palpate): Relaxed (Petra Ledgerwood, RN) Monitor Mode: External US (Petra Ledgerwood, RN) FHR Baseline Rate : 140 (Petra Ledgerwood, RN) FHR Baseline Changes: No Baseline Change (Petra Ledgerwood, RN) Variability: Moderate 6-25 bpm (Petra Ledgerwood, RN) Accelerations: 15X15 (Petra Ledgerwood, RN) Decelerations: None (Petra Ledgerwood, RN) Datetime: 11/09/2016 23:27 NBP Sys/Angela/Mean (mmHg): 146 (QS system process) : 90 (QS system process) : 112 (QS system process) Pulse: 104 (QS system process) LaborFlag: Labor (QS system process) Datetime: 11/09/2016 23:05 Procedures: Consents Signed (Petra Ledgerwood, RN) Datetime: 11/09/2016 23:00 Monitor Mode: External (Petra Ledgerwood, RN) Frequency (min): none (Petra Ledgerwood, RN) Resting Tone (Palpate): Relaxed (Petra Ledgerwood, RN) Contraction Comments: no contractions noted during palpation, pt reported no contractions. (Petra Ledgerwood, RN) Monitor Mode: External US (Petra Ledgerwood, RN) FHR Baseline Rate : 150 (Petra Ledgerwood, RN) FHR Baseline Changes: No Baseline Change (Petra Ledgerwood, RN) Variability: Moderate 6-25 bpm (Petra Ledgerwood, RN) Accelerations: 15X15 (Petra Ledgerwood, RN) Decelerations: None (Petra Ledgerwood, RN) Datetime: 11/09/2016 22:57 NBP Sys/Angela/Mean (mmHg): 141 (QS system process) : 92 (QS system process) : 111 (QS system process) Pulse: 104 (QS system process) LaborFlag: Labor (QS system process) Datetime: 11/09/2016 22:45 Pain Scale: 0 (Petra Torres RN) Pain Presence: None/Denies (Petra Torres, JIM) Vaginal Bleeding: None (Petra Torres, RN) Level of Consciousness: Fully Conscious (Petra Torres RN) DTR's/Clonus: DTRs 2+; No Clonus (Petra Torres, RN) Headache: Denies (Petra Torres, RN) Breath Sounds, Left: Clear and Equal (Petra Torres RN) Breath Sounds, Right: Clear and Equal (Petra Torres RN) Nausea/Vomiting: Denies (Petra Torres, RN) RUQ Epigastric Pain: Denies (Petra Torres, RN) IV/Blood Work: IV Started; IV Bolus Started (Debbie Navas RN) Patient Care Comments: 18 g started in R forearm with first attempt. (Debbie Navas RN) Instructional Method: Demo; Verbal; Patient Instructed (Petra Torres RN) Plan of Care: Plan of Care Discussed; Vaginal Delivery; Labor; Induction (Petra Torres RN) Unit Routine: [place] to Room; Call C[place]; Bed; Visiting Policy; Waiting Areas; Handwashing; Monitoring; Safety/Fall Risk Prevention (Petra Torres RN) LaborFlag: Labor (QS system process) Datetime: 11/09/2016 22:27 NBP Sys/Angela/Mean (mmHg): 120 (QS system process) : 81 (QS system process) : 96 (QS system process) Pulse: 112 (QS system process) LaborFlag: Labor (QS system process) Datetime: 11/09/2016 22:15 Stage of : Labor (Petra Torres RN)
[2016-11-10] MEDS ORDERED: MISOPROSTOL 0.1 MG TABLET ONE ×2 (13:19→18:29)
--- NOTE | 2016-11-10 18:02 | L&D General Admission ---
General Admit Datetime Report Generated by CPN: 11/10/2016 18:00 INFORMATION Patient Age: 21 (08/01/2016 12:26:QS system process) EDC: 12/01/2016 00:00 (10/26/2016 15:25:Priscila Barron RN) : 1 (10/26/2016 15:25:Priscila Barron RN) Para: 0 (10/26/2016 15:25:Priscila Barron RN) Term: 0 (10/26/2016 15:25:Priscila Barron RN) : 0 (10/26/2016 15:25:Priscila Barron RN) Spontaneous Abortions: 0 (10/26/2016 15:25:Priscila Barron RN) Induced Abortions: 0 (10/26/2016 15:25:Priscila Barron RN) Livin (10/26/2016 15:25:Priscila Barron RN) Cesareans: 0 (10/26/2016 15:25:Priscila Barron RN) VBACs: 0 (10/26/2016 15:25:Priscila Barron RN) Ectopic: 0 (10/26/2016 15:25:Priscila Barron RN) Multiple Births: 0 (10/26/2016 15:25:Priscila Barron RN) Baby, Number in Womb: 1 (10/26/2016 15:25:Priscila Barron RN) CARE Primary Examiner Rating Clerk: [facility] (10/26/2016 15:25:Priscila Barron RN) Month of 1st Visit: April (10/26/2016 15:25:Priscila Barron RN) Adequate Care: Yes (10/26/2016 15:25:Priscila Barron RN) Height (in): 69 (11/10/2016 11:46:QS system process) ALLERGIES Medication Allergy: No (10/26/2016 15:25:Priscila Barron RN) Medication Allergies: No Known Drug Allergies (11/10/2016) (11/10/2016 00:21:QS system process) Latex Allergy: No Latex Allergies (10/26/2016 15:25:Priscila Barron RN) Food Allergies: denies (10/26/2016 15:25:Priscila , RN) Environmental Allergies: denies (10/26/2016 15:25:Priscila Barron RN) COMMUNICATION Primary Language: Botswanan (10/26/2016 15:25:Priscila Barron RN) Medical Tx Preferred Language: Botswanan (10/26/2016 15:25:Priscila Barron RN) DEMOGRAPHICS Address: [address] [place] [id number] (11/01/2016 18:42:QS system process) Zipcode: [address] (08/01/2016 12:26:QS system process) Home (08/01/2016 12:26:QS system process) N: [phone] (08/01/2016 12:26:QS system process) Next of Kin Name: LIZA OBREGON (08/01/2016 12:26:QS system process) Next of Kin (08/01/2016 12:26:QS system process) Next of Kin Relationship: MO (08/01/2016 12:26:QS system process) Date of : 1995 (08/01/2016 12:26:QS system process) Marital Status: Single (08/01/2016 12:26:QS system process) Sex: Female (08/01/2016 12:26:QS system process) Race: (08/01/2016 12:26:QS system process) Ethnicity: Non- or (08/01/2016 12:26:QS system process) Taoism: Other (08/01/2016 12:26:QS system process) DRUG AND ALCOHOL USE Alcohol: No (10/26/2016 15:25:Priscila Barron RN) Cigarettes: Never Smoker. [id number] (10/26/2016 15:25:Petra Torres RN) Marijuana: No (10/26/2016 15:25:Priscila Barron RN) Cocaine: No (10/26/2016 15:25:Priscila Barron RN) Other Illicit Drugs: No (10/26/2016 15:25:Priscila Barron RN) VACCINE HISTORY Influenza Vaccine: Yes (10/26/2016 15:25:Petra Torres RN) Continuing Education Dean: [facility] (10/26/2016 15:25:Petra Torres RN) Feeding Preference: Breast (10/26/2016 15:25:Petra Torres RN) Circumcision: N/A (10/26/2016 15:25:Petra Torres RN) Classes Attended: No (10/26/2016 15:25:Petra Torres RN) Tubal Ligation: No (10/26/2016 15:25:Priscila Barron RN) Tubal Authorization Signed: N/A (10/26/2016 15:25:Priscila Barron RN) Consent: N/A (10/26/2016 15:25:Priscila Barron RN) Consent Signed: N/A (10/26/2016 15:25:Priscila Barron RN) Pain Management Plans: Epidural (10/26/2016 15:25:Petra Torres RN) Plans for Labor and Delivery: None (10/26/2016 15:25:Petra Torres RN) Support Person: Walter (10/26/2016 15:25:Petra Torres RN) Support Person Relationship: Significant Other (10/26/2016 15:25:Petra Torres RN) Cultural/Spritual Practice: No (10/26/2016 15:25:Priscila Barron RN) Spir/Cult Dietary Needs: No (10/26/2016 15:25:Priscila Barron RN) LIVING SITUATION/DISCHARGE PLAN Living Arrangements: House (10/26/2016 15:25:Petra Torres RN) Adequate Access to:: Electric; Heat; Refrigeration; Plumbing/Running water; Phone; Transportation (10/26/2016 15:25:Petra Torres RN) WIC Program: No (10/26/2016 15:25:Petra Torres RN) Discharge Automotive Alignment Specialist Person: Mother (10/26/2016 15:25:Petra Torres RN) Person to Help after Discharge: Mother (10/26/2016 15:25:Petra Torres RN) Currently Using Commun Resources: Yes (10/26/2016 15:25:Petra Torres RN) Specify Current Resource Used: medicaid (10/26/2016 15:25:Petra Torres RN) Outside Agency/Pesticide Applicator: No (10/26/2016 15:25:Petra Torres RN) Car Seat for Discharge: Yes (10/26/2016 15:25:Petra Torres RN) Adoption Requested: No (10/26/2016 15:25:Petra Torres RN) Pt Contact w/ Post : N/A (10/26/2016 15:25:Petra Torres RN) LABS Blood Type: O Positive (10/26/2016 15:25:Priscila Barron RN) Antibody Screen: negative (10/26/2016 15:25:Priscila Barron RN) Hemoglobin: 11.0 L (11/09/2016 22:35:QS system process) Hematocrit: 32.7 L (11/09/2016 22:35:QS system process) MCV: 80 (11/09/2016 22:35:QS system process) Group Beta Strep: positive (10/26/2016 15:25:Viviana Willams RN) Gonorrhea: Negative (10/26/2016 15:25:Priscila Barron RN) Chlamydia: Negative (10/26/2016 15:25:Priscila Barron RN) RPR/VDRL: Nonreactive (10/26/2016 15:25:Priscila Barron RN) HIV Exposure Test: Negative (10/26/2016 15:25:JOHN Motley) HIV Results: neg (10/26/2016 15:25:JOHN Motley) Hepatitis B: Negative (10/26/2016 15:25:Priscila Barron RN) Rubella: Immune (10/26/2016 15:25:Priscila Barron RN) Rubella Titer: 8.71 (10/26/2016 15:25:Priscila Barron RN) Varicella Titer: 2699 (10/26/2016 15:25:Priscila Barron RN) OB/PREVIOUS HISTORY Current Procedures: Ultrasound (10/26/2016 15:25:Petra Torres RN) History of Previous : No (10/26/2016 15:25:Priscila Barron RN) History of Gestational Diabetes: No (10/26/2016 15:25:Priscila Barron RN) History of PIH: No (10/26/2016 15:25:Petra Torres RN) History of Incompetent Cervix: No (10/26/2016 15:25:Priscila Barron RN) History of Placenta Previa/Abrup: No (10/26/2016 15:25:Priscila Barron RN) History of Macrosomia: No (10/26/2016 15:25:Priscila Barron RN) History of IUGR: No (10/26/2016 15:25:Priscila Barron RN) History of Hemorrhage: No (10/26/2016 15:25:Priscila Barron RN) History of Loss/Stillborn: No (10/26/2016 15:25:Priscila Barron RN) History of : No (10/26/2016 15:25:Priscila Barron RN) History of D (Rh) Sensitization: No (10/26/2016 15:25:Priscila Barron RN) History Recurrent Loss/Stillborn: No (10/26/2016 15:25:Priscila Barron RN) History Depression/PP Depression: No (10/26/2016 15:25:Priscila Barron RN) History of Uterine Anomaly/RUDDY: No (10/26/2016 15:25:Priscila Barron RN) History of Infertility: No (10/26/2016 15:25:Priscila Barron RN) History of ART Treatment: No (10/26/2016 15:25:Priscila Barron RN) History of RUDDY: No (10/26/2016 15:25:Priscila Barron RN) Comments Obstetrical History: G1: current (10/26/2016 15:25:Priscila Barron RN) MEDICAL HISTORY Med Hx Diabetes: No (10/26/2016 15:25:Priscila Barron RN) Med Hx Hypertension: Yes (10/26/2016 15:25:Viviana Willams RN) Med Hx Heart Disease: No (10/26/2016 15:25:Priscila Barron RN) Med Hx Autoimmune Disorder: No (10/26/2016 15:25:Priscila Barron RN) Med Hx Kidney Disease/UTI: No (10/26/2016 15:25:Priscila Barron RN) Med Hx Neurologic/Epilepsy: No (10/26/2016 15:25:Priscila Barron RN) Med Hx Psychiatric Disorders: No (10/26/2016 15:25:Priscila Barron RN) Med Hx Hepatitis/Liver Disease: No (10/26/2016 15:25:Priscila Barron RN) Med Hx Varicosities/Phlebitis: No (10/26/2016 15:25:Priscila Barron RN) Med Hx Thyroid Dysfunction: No (10/26/2016 15:25:Priscila Barron RN) Med Hx Trauma/Violence: No (10/26/2016 15:25:Priscila Barron RN) Med Hx Blood Transfusion: No (10/26/2016 15:25:Priscila Barron RN) Med Hx Pulmonary (Asthma,TB): No (10/26/2016 15:25:Priscila Barron RN) Med Hx Breast: No (10/26/2016 15:25:Priscila Barron RN) Med Hx ELECTROPLATING LABORER Surgery: No (10/26/2016 15:25:Priscila Barron RN) Med Hx Hospitalization/Surgery: No (10/26/2016 15:25:Priscila Barorn RN) Med Hx Anesthetic Complications: No (10/26/2016 15:25:Priscila Barron RN) Med Hx Abnormal Pap Smear: No (10/26/2016 15:25:Priscila Barron RN) Other Medical Diseases: No (10/26/2016 15:25:Priscila Barron RN) Med Hx Significant Family Hx: No (10/26/2016 15:25:Priscila Barron RN) Details of Med/Surg Hx: g1: ghtn (10/26/2016 15:25:Viviana Willams RN) INFECTIOUS HISTORY Inf Hx Gonorrhea: No (10/26/2016 15:25:Priscila Barron RN) Inf Hx Chlamydia: No (10/26/2016 15:25:Priscila Barron RN) Inf Hx Syphilis: No (10/26/2016 15:25:Priscila Barron RN) Inf Hx HIV/AIDS: No (10/26/2016 15:25:Priscila Barron RN) Inf Hx Human Papilloma Virus: No (10/26/2016 15:25:Priscila Barron RN) Inf Hx Pt/Partner Genital Herpes: No (10/26/2016 15:25:Priscila Barron RN) Inf Hx Tuberculosis/Exposure: No (10/26/2016 15:25:Priscila Barron RN) Inf Hx Hepatitis B,C: No (10/26/2016 15:25:Priscila Barron RN) Inf Hx Rash or Viral Illness: No (10/26/2016 15:25:Priscila Barron RN) GENETIC HISTORY Gen Hx Age >=35 at MARS: No (10/26/2016 15:25:Priscila Barron RN) Gen Hx Thalassemia: No (10/26/2016 15:25:Priscila Barron RN) Gen Hx Congenital Heart Defect: No (10/26/2016 15:25:Priscila Barron RN) Gen Hx Neural Tube Defect: No (10/26/2016 15:25:Priscila Barron RN) Gen Hx Down's Syndrome: No (10/26/2016 15:25:Priscila Barron RN) Gen Hx Monroe-Sachs: No (10/26/2016 15:25:Priscila Barron RN) Gen Hx Wiley: No (10/26/2016 15:25:Priscila Barron RN) Gen Hx Familial Dysautonomia: No (10/26/2016 15:25:Priscila Barron RN) Gen Hx Sickle Cell Disease/Trait: No (10/26/2016 15:25:Priscila Barron RN) Gen Hx Hemophilia/Blood Disorder: No (10/26/2016 15:25:Priscila Barron RN) Gen Hx Muscular Dystrophy: No (10/26/2016 15:25:Priscila Barron RN) Gen Hx Cystic Fibrosis: No (10/26/2016 15:25:Priscila Barron RN) Gen Hx Huntingtons Chorea: No (10/26/2016 15:25:Priscila Barron RN) Gen Hx Mental Retardation/Autism: No (10/26/2016 15:25:Priscila Barron RN) Gen Hx Tested for Fragile X: No (10/26/2016 15:25:Priscila Barron RN) Gen Hx Other Inher/Chromosomal: No (10/26/2016 15:25:Priscila Barron RN) Gen Hx Maternal Metabolic DO: No (10/26/2016 15:25:Priscila Barron RN) Gen Hx Pt Father or FOB Defect: No (10/26/2016 15:25:Priscila Barron RN) Gen Hx Other Genetic History: No (10/26/2016 15:25:rPiscila Barron RN) Gen Hx Drugs/Meds since LMP: No (10/26/2016 15:25:Priscila Barron RN)
--- NOTE | 2016-11-10 18:02 | L&D Current Admission ---
Current Admit Datetime Report Generated by CPN: 11/10/2016 18:00 ADMISSION INFORMATION Current Admit Date/Time: 11/09/2016 22:54 (11/09/2016 22:54:Petra Torres RN) Reason for Admission: Induction of Labor (11/09/2016 22:54:Petra Torres RN) Chief Complaint: Scheduled Induction of Labor (11/09/2016 22:45:Petra Torres RN) EGA per Dates: 36.6 (11/09/2016 22:54:QS system process) Method of Arrival: Ambulatory (11/09/2016 22:54:Petra Torres RN) Reason for Induction: Gestational Hypertension (11/09/2016 22:54:Petra Torres RN) Records Available: Yes (11/09/2016 22:54:Petra Torres RN) General Admission Information: Reviewed (11/09/2016 22:54:Petra Torres RN) BELONGINGS/ADVANCED DIRECTIVES Other Belongings: see belonging consent (11/09/2016 22:54:Petra Torres RN) Disposition of Belongings: Kept with Patient (11/09/2016 22:54:Petra Torres RN) Advance Direct for Healthcare: No, and Wants No Information (11/09/2016 22:54:Petra Torres RN) Durable Power of In Flight Refueling System Repairer: No (11/09/2016 22:54:Petra Torres RN) Living Will: No (11/09/2016 22:54:Petra Torres RN) Organ Donor: Yes (11/09/2016 22:54:Petra Torres RN) Pt Rights Information Given: Yes (11/09/2016 22:54:Petra Torres RN) Pt Understands Pt Rights: Yes (11/09/2016 22:54:Petra Torres RN) LEARNING ASSESSMENT Knowledge Level: Understands L_D Process; Understands Care Activities; Understands Diagnosis (11/09/2016 22:54:Petra Torres RN) Barriers to Learning: None (11/09/2016 22:54:Petra Torres RN) Learning Readiness: Motivated (11/09/2016 22:54:Petra Torres RN) Learns Best By: 1 to 1 Instruction (11/09/2016 22:54:Petra Torres RN) Learning Needs: Labor and Delivery Process; Pain Management; Symptoms to Report; Treatment Plan; Medication; Diagnosis; Nutrition; Equipment; Infant Care; Community Resources (11/09/2016 22:54:Petra Torres RN) DOMESTIC VIOLANCE SCREENING Dom Viol Threatened/Hurt: No (11/09/2016 22:54:Petra Torres RN) Hx of Abuse/Neglect past 2yrs: No (11/09/2016 22:54:Petra Torres RN) Feel Unsafe Going Home: No (11/09/2016 22:54:Petra Torres RN) Addt'l Observ Indicating Abuse: No (11/09/2016 22:54:Petra Torres RN) Reason Unable to Complete Screen: N/A, Screen Completed (11/09/2016 22:54:Petra Torres RN) Considered Personal Harm/Suicide: No (11/09/2016 22:54:Petra Torres RN) NUTRITIONAL/FUNCTIONAL SCREENING Problem with Appetite >5 Days: No (11/09/2016 22:54:Petra Torres RN) Chew/Swallow Difficulties: No (11/09/2016 22:54:Petra Torres RN) Inappropriate Wt Gain/Loss: No (11/09/2016 22:54:Petra Torres RN) Presence Skin Breakdown/Ulcer: No (11/09/2016 22:54:Petra Torres RN) Special Diet: No (11/09/2016 22:54:Petra Torres RN) Pt Requests [employer] Manager Visit: No (11/09/2016 22:54:Petra Torres RN) Hx of Any of the Following?: N/A (11/09/2016 22:54:Petra Torres RN) New Diagnosis of: N/A (11/09/2016 22:54:Petra Torres RN) Requires Assist w/Ambulation: No (11/09/2016 22:54:Petra Torres RN) Uses Assist Device to Ambulate: No (11/09/2016 22:54:Petra Torres RN) Pt Requires Help w/ADL's: No (11/09/2016 22:54:Petra Torres RN)
[2016-11-10 19:53] LABS: ABSOLUTE EOSINOPHILS # (AUTO) 0.1 10^3/uL (0.0-0.6); ABSOLUTE LYMPHOCYTES (AUTO) 1.9 10^3/uL (0.5-4.7); ABSOLUTE MONOCYTES (AUTO) 0.9 10^3/uL (0.1-1.4); ABSOLUTE NEUT (AUTO) 10.4 10^3/uL (1.7-8.2); BASOPHILS % (AUTO) 0.3 % (0-2); EOSINOPHILS % (AUTO) 0.9 % (0-6); HEMATOCRIT 34.3 % (36.0-47.0); HEMOGLOBIN 11.4 g/dL (12.0-15.5); HGB HCT DIFFERENCE -0.1; MEAN CORPUSCULAR HEMOGLOBIN 26.8 pg (27.0-33.4); MEAN CORPUSCULAR HGB CONC 33.3 g/dL (32.0-36.0); MEAN CORPUSCULAR VOLUME 81 fl (80-97); MONOCYTES % (AUTO) 6.5 % (3-13); RED BLOOD COUNT 4.25 10^6/uL (3.72-5.28); RED CELL DISTRIBUTION WIDTH 13.6 % (11.5-14.0); SEGMENTED NEUTROPHILS % (AUTO) 78.3 % (42-78); WHITE BLOOD COUNT 13.2 10^3/uL (4.0-10.5)
--- NOTE | 2016-11-10 20:02 | L&D Flow Sheet ---
LD Flowsheet Datetime Report Generated by CPN: 11/10/2016 20:00 Datetime: 11/10/2016 19:33 IV/Blood Work: Labs Drawn (Courtney Mancia, RN) Patient Care Comments: [facility] lab drawns (Courtney Mancia, RN) Datetime: 11/10/2016 19:30 Level of Consciousness: Fully Conscious (Courtney Mancia, RN) DTR's/Clonus: DTRs 2+; No Clonus (Courtney Mancia RN) Headache: Denies (Courtney Mancia, JIM) Breath Sounds, Left: Clear and Equal (Courtney Mancia, RN) Breath Sounds, Right: Clear and Equal (Courtney Mancia, RN) Nausea/Vomiting: Denies (Courtney Mancia RN) RUQ Epigastric Pain: Denies (Courtneyherbert Mancia, RN) Datetime: 11/10/2016 19:10 Communication Comments: Report received from JIM Damon. David assummed (Courtney Mancia RN) Datetime: 11/10/2016 19:07 Monitor Mode: External (Briseyda Bellavance, RNC) Monitor Interventions for UA: [place] Adjusted (Briseyda Bellavance, RNC) Frequency (min): 4-5 (Briseyda Bellavance, RNC) Quality: Mild (Briseyda Bellavance, RNC) Duration (sec): 40-60 (Briseyda Bellavance, RNC) Resting Tone (Palpate): Relaxed (Briseyda Bellavance, RNC) Monitor Mode: External US (Briseyda Bellavance, RNC) Monitor Interventions for FHR: Ultrasound Adjusted (Briseyda Bellavance, RNC) FHR Baseline Rate : 135 (Briseyda Bellavance, RNC) Variability: Moderate 6-25 bpm (Briseyda Bellavance, RNC) Accelerations: 15X15 (Briseyda Bellavance, RNC) Decelerations: None (Briseyda Bellavance, RNC) Level of Consciousness: Fully Conscious (Briseyda Bellavance, RNC) IV/Blood Work: IV Infusing per Order (Briseyda Bellavance, RNC) Patient Position/Activity: Semi-Fowlers (Briseyda Bellavance, RNC) Comfort Measures: Family Support (Briseyda Bellavance, RNC) Datetime: 11/10/2016 18:38 NBP Sys/Angela/Mean (mmHg): 136 (QS system process) : 90 (QS system process) : 107 (QS system process) Pulse: 99 (QS system process) Respirations: 16 (Briseyda Bellavance, RNC) Temperature (F): 99.0 (Briseyda Bellavance, RNC) Temperature (C): 37.2 (QS system process) Temperature Route: Oral (Briseyda Bellavance, RNC) Monitor Mode: External (Briseyda Bellavance, RNC) Monitor Interventions for UA: [place] Adjusted (Briseyda Bellavance, RNC) Frequency (min): 2-3 (Briseyda Bellavance, RNC) Quality: Mild (Briseyda Bellavance, RNC) Duration (sec): 40-60 (Briseyda Bellavance, RNC) Resting Tone (Palpate): Relaxed (Briseyda Damon, RNC) Monitor Mode: External US (Briseyda Damon RNC) Monitor Interventions for FHR: Ultrasound Adjusted (Briseyda Damon, RNC) FHR Baseline Rate : 135 (Briseyda Damon, RNC) Variability: Moderate 6-25 bpm (Briseyda Damon, RNC) Accelerations: 15X15 (Briseyda Damon, RNC) Decelerations: None (Briseyda Damon, RNC) Pain Scale: 0 (Briseyda Damon, RNC) Dilatation (cm): 1.0 (Briseyda Damon, RNC) Effacement (%): 0 (Briseyda Damon, RNC) Station: -2 (Briseyda Damon, RNC) Exam by: Sosa Damon RNC (Briseyda Damon, RNC) Membrane Status: Intact (Briseyda Damon, RNC) Level of Consciousness: Fully Conscious (Briseyda Damon, RNC) DTR's/Clonus: DTRs 2+ (Briseyda Damon, RNC) Headache: Denies (Briseyda Damon, RNC) Nausea/Vomiting: Denies (Briseyda Damon, RNC) RUQ Epigastric Pain: Denies (Briseyda Damon, RNC) Cervical Ripening Agents: Cytotec @ (Annotations: 25 mg po and 25 mg pv) (Briseyda Damon, RNC) IV/Blood Work: IV Infusing per Order (Briseyda Damon, RNC) Patient Position/Activity: Semi-Fowlers (Briseyda Damon, RNC) Comfort Measures: Family Support (Briseyda Damon, RNC) LaborFlag: Labor (QS system process) Datetime: 11/10/2016 17:32 Additional Nursing Comments: iv to saline lock and monitors off Dinner ordered (Briseyda Bellavance, RNC) Datetime: 11/10/2016 17:31 Monitor Mode: External (Briseyda Bellavance, RNC) Monitor Interventions for UA: [place] Adjusted (Briseyda Bellavance, RNC) Frequency (min): 2-5 (Briseyda Bellavance, RNC) Quality: Mild (Briseyda Bellavance, RNC) Duration (sec): 50-60 (Briseyda Bellavance, RNC) Resting Tone (Palpate): Relaxed (Briseyda Bellavance, RNC) Monitor Mode: External US (Briseyda Bellavance, RNC) Monitor Interventions for FHR: Ultrasound Adjusted (Briseyda Bellavance, RNC) FHR Baseline Rate : 140 (Briseyda Bellavance, RNC) Variability: Moderate 6-25 bpm (Briseyda Bellavance, RNC) Accelerations: 15X15 (Briseyda Bellavance, RNC) Decelerations: None (Briseyda Bellavance, RNC) Pain Scale: 0 (Briseyda Bellavance, RNC) IV/Blood Work: IV Infusing per Order (Briseyda Bellavance, RNC) LaborFlag: Labor (QS system process) Datetime: 11/10/2016 17:01 NBP Sys/Angela/Mean (mmHg): 137 (QS system process) : 92 (QS system process) : 108 (QS system process) Pulse: 100 (QS system process) Respirations: 17 (Briseyda Bellavance, RNC) Monitor Mode: External (Briseyda Bellavance, RNC) Monitor Interventions for UA: [place] Adjusted (Briseyda Bellavance, RNC) Frequency (min): 2-5 (Briseyda Bellavance, RNC) Quality: Mild (Briseyda Bellavance, RNC) Duration (sec): 50-60 (Briseyda Bellavance, RNC) Resting Tone (Palpate): Relaxed (Briseyda Bellavance, RNC) Monitor Mode: External US (Briseyda Bellavance, RNC) Monitor Interventions for FHR: Ultrasound Adjusted (Briseyda Bellavance, RNC) FHR Baseline Rate : 140 (Briseyda Bellavance, RNC) Variability: Moderate 6-25 bpm (Briseyda Bellavance, RNC) Accelerations: 15X15 (Briseyda Bellavance, RNC) Decelerations: None (Briseyda Bellavance, RNC) Pain Scale: 0 (Briseyda Bellavance, RNC) IV/Blood Work: IV Infusing per Order (Briseyda Bellavance, RNC) LaborFlag: Labor (QS system process) Datetime: 11/10/2016 16:30 NBP Sys/Angela/Mean (mmHg): 132 (QS system process) : 83 (QS system process) : 103 (QS system process) Pulse: 87 (QS system process) Respirations: 16 (Briseyda Bellavance, RNC) Monitor Mode: External (Briseyda Bellavance, RNC) Monitor Interventions for UA: [place] Adjusted (Briseyda Bellavance, RNC) Frequency (min): 2-5 (Briseyda Bellavance, RNC) Quality: Mild (Briseyda Bellavance, RNC) Duration (sec): 50-60 (Briseyda Bellavance, RNC) Resting Tone (Palpate): Relaxed (Briseyda Bellavance, RNC) Monitor Mode: External US (Briseyda Bellavance, RNC) Monitor Interventions for FHR: Ultrasound Adjusted (Briseyda Bellavance, RNC) FHR Baseline Rate : 140 (Briseyda Bellavance, RNC) Variability: Moderate 6-25 bpm (Briseyda Bellavance, RNC) Accelerations: 15X15 (Briseyda Bellavance, RNC) Decelerations: None (Briseyda Bellavance, RNC) Pain Scale: 0 (Briseyda Bellavance, RNC) IV/Blood Work: IV Infusing per Order (Briseyda Bellavance, RNC) LaborFlag: Labor (QS system process) Datetime: 11/10/2016 16:01 NBP Sys/Angela/Mean (mmHg): 130 (QS system process) : 74 (QS system process) : 96 (QS system process) Pulse: 88 (QS system process) Respirations: 17 (Margie Rodriguez RNC) Monitor Mode: External (Margie Rodriguez, JIMC) Monitor Interventions for UA: [place] Adjusted (JOHN Glass) Frequency (min): 2-5 (Margie Rodriguez RNC) Quality: Mild (Margie Rodriguez RNC) Duration (sec): 50-60 (Margie Rodriguez, RNC) Resting Tone (Palpate): Relaxed (JOHN Glass) Monitor Mode: External US (JOHN Glass) Monitor Interventions for FHR: Ultrasound Adjusted (Margie Rodriguez RNMina) FHR Baseline Rate : 140 (Margie Rodriguez, RNC) Variability: Moderate 6-25 bpm (Margie Rodriguez RNC) Accelerations: 15X15 (Margie Rodriguez, RNC) Decelerations: None (Margie Rodriguez RNC) Pain Scale: 0 (Margie Rodriguez, RNC) IV/Blood Work: IV Infusing per Order (JOHN Glass) LaborFlag: Labor (QS system process) Datetime: 11/10/2016 15:30 NBP Sys/Angela/Mean (mmHg): 136 (QS system process) : 87 (QS system process) : 106 (QS system process) Pulse: 93 (QS system process) Respirations: 18 (Briseyda Damon, RNC) Temperature (F): 99.0 (Briseyda Bellavance, RNC) Temperature (C): 37.2 (QS system process) Temperature Route: Oral (Briseyda Bellavance, RNC) Monitor Mode: External (Briseyda Bellavance, RNC) Monitor Interventions for UA: [place] Adjusted (Briseyda Bellavance, RNC) Frequency (min): 2-3 (Briseyda Bellavance, RNC) Quality: Mild (Briseyda Bellavance, RNC) Duration (sec): 50-60 (Briseyda Bellavance, RNC) Resting Tone (Palpate): Relaxed (Briseyda Bellavance, RNC) Monitor Mode: External US (Briseyda Bellavance, RNC) Monitor Interventions for FHR: Ultrasound Adjusted (Briseyda Bellavance, RNC) FHR Baseline Rate : 140 (Briseyda Bellavance, RNC) Variability: Moderate 6-25 bpm (Briseyda Bellavance, RNC) Accelerations: 15X15 (Briseyda Bellavance, RNC) Decelerations: None (Briseyda Bellavance, RNC) Pain Scale: 0 (Briseyda Bellavance, RNC) IV/Blood Work: IV Infusing per Order (Briseyda Bellavance, RNC) LaborFlag: Labor (QS system process) Datetime: 11/10/2016 14:42 Communication Comments: oob to walk with family (Briseyda Bellavance, RNC) Datetime: 11/10/2016 14:30 Monitor Mode: External; Palpation (Briseyda Bellavance, RNC) Frequency (min): 1.5-4 (Briseyda Bellavance, RNC) Quality: Mild (Briseyda Bellavance, RNC) Duration (sec): 50-70 (Briseyda Bellavance, RNC) Duration Criteria: Less than Two 120 Second Contractions (Briseyda Bellavance, RNC) Pattern: Normal: <= 5 Contractions in 10 Minutes (Brsieyda Bellavance, RNC) Resting Tone (Palpate): Relaxed (Briseyda Bellavance, RNC) Monitor Mode: External US (Briseyda Bellavance, RNC) FHR Baseline Rate : 150 (Briseyda Bellavance, RNC) FHR Baseline Changes: No Baseline Change (Briseyda Bellavance, RNC) Variability: Moderate 6-25 bpm (Briseyda Bellavance, RNC) Accelerations: 15X15 (Briseyda Bellavance, RNC) Decelerations: None (Briseyda Bellavance, RNC) Datetime: 11/10/2016 14:15 Communication Comments: report given to Moni Damon RN, Care relinquished (Priscila , RN) Datetime: 11/10/2016 14:00 Monitor Mode: External; Palpation (Priscila , RN) Frequency (min): 1.5-4 (Priscila , RN) Quality: Mild (Priscila , RN) Duration (sec): 50-70 (Priscila , RN) Duration Criteria: Less than Two 120 Second Contractions (Priscila , RN) Pattern: Normal: <= 5 Contractions in 10 Minutes (Priscila , RN) Resting Tone (Palpate): Relaxed (Priscila , RN) Monitor Mode: External US (Priscila , RN) FHR Baseline Rate : 150 (Priscila , RN) FHR Baseline Changes: No Baseline Change (Priscila , RN) Variability: Moderate 6-25 bpm (Priscila , RN) Accelerations: 15X15 (Priscila , RN) Decelerations: None (Priscila , RN) Datetime: 11/10/2016 13:30 Monitor Mode: External; Palpation (Priscila Anedrson, RN) Frequency (min): 1.5-4 (Priscila , RN) Quality: Mild (Priscila , RN) Duration (sec): 50-70 (Priscila Barron RN) Duration Criteria: Less than Two 120 Second Contractions (Priscila Barron RN) Pattern: Normal: <= 5 Contractions in 10 Minutes (Priscila Barron RN) Resting Tone (Palpate): Relaxed (Priscila Barron RN) Monitor Mode: External US (Priscila Barron RN) FHR Baseline Rate : 150 (Priscila Barron RN) FHR Baseline Changes: No Baseline Change (Priscila Barron RN) Variability: Moderate 6-25 bpm (Priscila Barron RN) Accelerations: 15X15 (Priscila Barron RN) Decelerations: None (Priscila Barron RN) Datetime: 11/10/2016 13:25 Medication Comments: Cytotec 25 mcg PO and Cytotec 25 mcg PV (Priscila Barron RN) Datetime: 11/10/2016 13:08 Dilatation (cm): 1.0 (Priscila Barron RN) Effacement (%): 25 (Priscila Barron RN) Station: -3 (Priscila Barron RN) Exam by: Susana Robins CNM (Priscila Barron RN) Datetime: 11/10/2016 11:39 Communication Comments: Order received for patient to be off monitor, eat lunch, ambulate, for one hour. cervidil removed, monitors removed. (Priscila Barron RN) Datetime: 11/10/2016 11:30 Monitor Mode: External (Priscila Barron RN) Frequency (min): 3.5-5 (Priscila Barron RN) Quality: Mild (Priscila Barron RN) Duration (sec): 60-70 (Priscila Barron RN) Duration Criteria: Less than Two 120 Second Contractions (Priscila Barron RN) Pattern: Normal: <= 5 Contractions in 10 Minutes (Priscila Barron RN) Resting Tone (Palpate): Relaxed (Priscila Barron RN) Monitor Mode: External US (Priscila Barron RN) FHR Baseline Rate : 145 (Priscila Barron RN) FHR Baseline Changes: No Baseline Change (Priscila Barron RN) Variability: Moderate 6-25 bpm (Priscila Barron RN) Accelerations: 15X15 (Priscila , RN) Decelerations: None (Priscila , RN) Datetime: 11/10/2016 11:27 NBP Sys/Angela/Mean (mmHg): 140 (QS system process) : 82 (QS system process) : 106 (QS system process) Pulse: 99 (QS system process) LaborFlag: Labor (QS system process) Datetime: 11/10/2016 11:07 I/O Interventions: Up to BR (Priscila , RN) Datetime: 11/10/2016 11:00 Monitor Mode: External; Palpation (Prisicla , JIM) Frequency (min): 2-5 (Priscila Barron, RN) Quality: Mild (Priscila Barron, RN) Duration (sec): 50-70 (Priscila Barron, RN) Duration Criteria: Less than Two 120 Second Contractions (Priscila Barron, RN) Pattern: Normal: <= 5 Contractions in 10 Minutes (Priscila Barron, RN) Resting Tone (Palpate): Relaxed (Priscila Barron, RN) Contraction Comments: irritability (Priscila Barron, RN) Monitor Mode: External US (Priscila Barron, JIM) FHR Baseline Rate : 150 (Priscila Barron, RN) FHR Baseline Changes: No Baseline Change (Priscila Barron, RN) Variability: Moderate 6-25 bpm (Priscila Barron, RN) Accelerations: 15X15 (Priscila Barron, RN) Decelerations: None (Priscila Barron, RN) Datetime: 11/10/2016 10:57 NBP Sys/Angela/Mean (mmHg): 141 (QS system process) : 86 (QS system process) : 107 (QS system process) Pulse: 98 (QS system process) LaborFlag: Labor (QS system process) Datetime: 11/10/2016 10:40 Antibiotics: Penicillin IV (Units) @ 2,500,000 (Priscila Barron, RN) Datetime: 11/10/2016 10:30 Monitor Mode: External; Palpation (Priscila Barron, RN) Frequency (min): 1.5-5.5 (Priscila Barron, RN) Quality: Mild (Priscila Barron, RN) Duration (sec): 40-50 (Priscila Barron, RN) Duration Criteria: Less than Two 120 Second Contractions (Priscila Barron, RN) Pattern: Normal: <= 5 Contractions in 10 Minutes (Priscila Barron, RN) Resting Tone (Palpate): Relaxed (Priscila Barron, RN) Contraction Comments: irritability (Priscila Barron, RN) Monitor Mode: External US (Priscila Barron, RN) FHR Baseline Rate : 150 (Priscila Barrno, RN) FHR Baseline Changes: No Baseline Change (Priscila Barron, RN) Variability: Moderate 6-25 bpm (Priscila Barron, RN) Accelerations: 15X15 (Priscila Barron, RN) Decelerations: None (Priscila Barron, RN) Datetime: 11/10/2016 10:27 NBP Sys/Angela/Mean (mmHg): 133 (QS system process) : 74 (QS system process) : 98 (QS system process) Pulse: 96 (QS system process) LaborFlag: Labor (QS system process) Datetime: 11/10/2016 10:00 Monitor Mode: External; Palpation (Priscila Barron, JIM) Frequency (min): 1.5-4 (Priscila Barron, JIM) Quality: Mild (Priscila Barron, RN) Duration (sec): 50-70 (Priscila Barron, RN) Duration Criteria: Less than Two 120 Second Contractions (Priscila Barron, RN) Pattern: Normal: <= 5 Contractions in 10 Minutes (Priscila Barron, RN) Resting Tone (Palpate): Relaxed (Priscila Barron, RN) Monitor Mode: External US (Priscila Barron, RN) FHR Baseline Rate : 140 (Priscila Barron, RN) FHR Baseline Changes: No Baseline Change (Priscila Barron, RN) Variability: Moderate 6-25 bpm (Priscila Barron, RN) Accelerations: 15X15 (Priscila Barron, RN) Decelerations: None (Priscila Barron, RN) Datetime: 11/10/2016 09:58 NBP Sys/Angela/Mean (mmHg): 135 (QS system process) : 80 (QS system process) : 101 (QS system process) Pulse: 98 (QS system process) LaborFlag: Labor (QS system process) Datetime: 11/10/2016 09:32 Monitor Interventions for FHR: Ultrasound Adjusted (Priscila Barron RN) Datetime: 11/10/2016 09:30 Monitor Mode: External; Palpation (Priscila Barron RN) Frequency (min): 1-1.5 (Priscila Barron RN) Quality: Mild (Priscila Barron RN) Duration (sec): 60-70 (Priscila Barron RN) Duration Criteria: Less than Two 120 Second Contractions (Priscila Barron RN) Pattern: Normal: <= 5 Contractions in 10 Minutes (Priscila Barron RN) Resting Tone (Palpate): Relaxed (Priscila Barron RN) Monitor Mode: External US (Priscila Barron RN) FHR Baseline Rate : 145 (Priscila , RN) FHR Baseline Changes: No Baseline Change (Priscila Barron, RN) Variability: Moderate 6-25 bpm (Priscila Barron, RN) Accelerations: 15X15 (Priscila Barron, RN) Decelerations: None (Priscila Barron, RN) Datetime: 11/10/2016 09:28 NBP Sys/Angela/Mean (mmHg): 136 (QS system process) : 79 (QS system process) : 103 (QS system process) Pulse: 100 (QS system process) LaborFlag: Labor (QS system process) Datetime: 11/10/2016 09:16 Communication Comments: patient sitting up eating breakfast (Priscila Barron, RN) Datetime: 11/10/2016 09:00 Monitor Mode: External; Palpation (Priscila Barron, RN) Frequency (min): 2 (Priscila Barron, RN) Quality: Mild (Priscila , RN) Duration Criteria: Less than Two 120 Second Contractions (Priscila Barron, RN) Pattern: Normal: <= 5 Contractions in 10 Minutes (Priscila Barron, RN) Resting Tone (Palpate): Relaxed (Priscila Barron, RN) Contraction Comments: irritability (Priscila Barron, RN) Monitor Mode: External US (Priscila Barron, RN) FHR Baseline Rate : 140 (Priscila Barron, RN) FHR Baseline Changes: No Baseline Change (Priscila Barron, RN) Variability: Moderate 6-25 bpm (Priscila , RN) Accelerations: 10X10 (Priscila , RN) Decelerations: None (Priscila , RN) Datetime: 11/10/2016 08:58 NBP Sys/Angela/Mean (mmHg): 132 (QS system process) : 77 (QS system process) : 99 (QS system process) Pulse: 98 (QS system process) LaborFlag: Labor (QS system process) Datetime: 11/10/2016 08:30 Monitor Mode: External; Palpation (Priscila Barron, RN) Frequency (min): 1.5-2 (Priscila Barron, RN) Quality: Mild (Priscila , RN) Duration (sec): 50-60 (Priscila , RN) Duration Criteria: Less than Two 120 Second Contractions (Priscila Barron, RN) Pattern: Normal: <= 5 Contractions in 10 Minutes (Priscila , RN) Resting Tone (Palpate): Relaxed (Priscila Barron, RN) Monitor Mode: External US (Priscila Barron, RN) FHR Baseline Rate : 145 (Priscila Barron, RN) FHR Baseline Changes: No Baseline Change (Priscila Barron, RN) Variability: Moderate 6-25 bpm (Priscila , RN) Accelerations: 15X15 (Priscila , RN) Decelerations: None (Priscila , RN) Datetime: 11/10/2016 08:28 NBP Sys/Angela/Mean (mmHg): 139 (QS system process) : 79 (QS system process) : 103 (QS system process) Pulse: 93 (QS system process) LaborFlag: Labor (QS system process) Datetime: 11/10/2016 08:00 Monitor Mode: External; Palpation (Priscila Barron, RN) Quality: Mild (Priscila Barron, RN) Duration Criteria: Less than Two 120 Second Contractions (Priscila Barron, RN) Pattern: Normal: <= 5 Contractions in 10 Minutes (Priscila Barron, RN) Resting Tone (Palpate): Relaxed (Priscila Barron, RN) Contraction Comments: irritability (Priscila Barron, RN) Monitor Mode: External US (Priscila Barron, RN) FHR Baseline Rate : 150 (Priscila Barron, RN) FHR Baseline Changes: No Baseline Change (Priscila Barron, RN) Variability: Moderate 6-25 bpm (Priscila Barron, RN) Accelerations: 15X15 (Priscila Barron, RN) Decelerations: None (Priscila Barron, RN) Datetime: 11/10/2016 07:58 Monitor Interventions for UA: [place] Adjusted (Milagros Kumar, RNC) Monitor Interventions for FHR: Ultrasound Adjusted (Milagros Kumar, RNC) Patient Position/Activity: Left Tilt; Semi-Fowlers (Milagros Kumar, JIMC)
[2016-11-10 20:08] LABS: ALANINE AMINOTRANSFERASE 17 U/L (9-52); ALBUMIN 3.6 g/dL (3.5-5.0); ALKALINE PHOSPHATASE 124 U/L (38-126); ANION GAP 15 (5-19); ASPARTATE AMINO TRANSFERASE 14 U/L (14-36); BILIRUBIN,DIRECT 0.3 mg/dL (0.0-0.4); BILIRUBIN,TOTAL 0.6 mg/dL (0.2-1.3); BLOOD UREA NITROGEN 4 mg/dL (7-20); CALCIUM 8.9 mg/dL (8.4-10.2); CARBON DIOXIDE 21 mmol/L (22-30); CHLORIDE 105 mmol/L (98-107); CREATININE RESULT 0.59 mg/dL (0.52-1.25); GLUCOSE 100 mg/dL (75-110); LDH 367 U/L (313-618); POTASSIUM 3.5 mmol/L (3.6-5.0); SODIUM 141.1 mmol/L (137-145); TOTAL PROTEIN 6.4 g/dL (6.3-8.2); URIC ACID 3.5 mg/dL (2.5-6.2)
[2016-11-10] MEDS ORDERED: OXYTOCIN/NORMAL SALINE 1,000 ML IV PRN (22:18)
[2016-11-10] MEDS ORDERED: ACETAMINOPHEN 325 MG TABLET PO PRN (22:18)
[2016-11-10] MEDS ORDERED: MAG HYDROX/AL HYDROX/SIMETH SUSP 30 ML UDCUP PO PRN (22:18)
[2016-11-10] MEDS ORDERED: ZOLPIDEM TARTRATE 5 MG TABLET PO PRN (22:18)
[2016-11-10] MEDS ORDERED: DINOPROSTONE 10 MG VAGINAL INSERT.SR ONE (22:29)
[2016-11-10] MEDS ORDERED: DINOPROSTONE 10 MG VAGINAL INSERT.SR PV ONE (22:30)
[2016-11-10] MEDS: PENICILLIN G POTASSIUM 2,500,000 UNIT in DEXTROSE 5%-WATER 50 ML IV SCH ×3 (22:56→23:00)
[2016-11-11] MEDS ORDERED: PENICILLIN G-K 5 MILLION UNIT VIAL ONE ×4 (01:36→13:38)
[2016-11-11] MEDS ORDERED: DEXTROSE 5%-WATER 50 ML IV ONE (02:00)
[2016-11-11] MEDS ORDERED: PENICILLIN G-K 5 MILLION UNIT VIAL IV PRN (02:01)
[2016-11-11] MEDS: PENICILLIN G POTASSIUM 2,500,000 UNIT in DEXTROSE 5%-WATER 50 ML IV SCH ×5 (02:13→16:52)
[2016-11-11] MEDS ORDERED: MISOPROSTOL 0.1 MG TABLET PO ONE (04:00)
[2016-11-11] MEDS ORDERED: MISOPROSTOL 0.1 MG TABLET ONE (04:03)
--- NOTE | 2016-11-11 08:01 | L&D Flow Sheet ---
LD Flowsheet Datetime Report Generated by CPN: 11/11/2016 08:00 Datetime: 11/11/2016 07:37 NBP Sys/Angela/Mean (mmHg): 136 (QS system process) : 81 (QS system process) : 104 (QS system process) Pulse: 80 (QS system process) LaborFlag: Labor (QS system process) Datetime: 11/11/2016 07:30 Monitor Mode: External; Palpation (Vee Baker RN) Frequency (min): 2-7 (Vee Baidy, RN) Quality: Mild (Vee Baker, RN) Duration (sec): 60-90 (Vee Baker, RN) Duration Criteria: Less than Two 120 Second Contractions (Vee Baker, RN) Pattern: Normal: <= 5 Contractions in 10 Minutes (Vee Baker, RN) Resting Tone (Palpate): Relaxed (Vee Baker, RN) Monitor Mode: External US (Vee Baker, RN) FHR Baseline Rate : 140 (Vee Baker, RN) Variability: Moderate 6-25 bpm (Vee Baker, RN) Accelerations: 15X15 (Vee Baker, RN) Decelerations: None (Vee Baker, RN) Datetime: 11/11/2016 07:22 Monitor Interventions for UA: [place] Adjusted (Vee Baker, RN) Monitor Interventions for FHR: Ultrasound Adjusted (Vee Baker, RN) Datetime: 11/11/2016 07:19 Pain Scale: 3 (Vee Baker, RN) Pain Presence: Intermittent (Vee Baker RN) Pain Type: Contraction (Vee Baidy, RN) Pain Location: Abdomen (Vee Baker RN) Pain Relief Measures: Comfort Measures (Vee Baker RN) LaborFlag: Labor (QS system process) Datetime: 11/11/2016 07:18 Level of Consciousness: Fully Conscious (Vee Baker, JIM) DTR's/Clonus: DTRs 2+; No Clonus (Vee Baker, JIM) Headache: Denies (Vee Baker, RN) Breath Sounds, Left: Clear and Equal (Vee Baker RN) Breath Sounds, Right: Clear and Equal (Vee Baker RN) Nausea/Vomiting: Denies (Vee Baker, RN) RUQ Epigastric Pain: Denies (Vee Baker, JIM) Communication Comments: report to oncoming shift, care relinquished to jim baker (Courtney Mancia RN) Datetime: 11/11/2016 07:06 NBP Sys/Angela/Mean (mmHg): 136 (QS system process) : 86 (QS system process) : 107 (QS system process) Pulse: 84 (QS system process) LaborFlag: Labor (QS system process) Datetime: 11/11/2016 07:00 Monitor Mode: External; Palpation (Courtney Corysmann, RN) Frequency (min): 2-7 (Courtney Kossmann, RN) Quality: Mild (Courtney Kossmann, RN) Duration (sec): 70-90 (Courtney Kossmann, RN) Resting Tone (Palpate): Relaxed (Courtney Corysmann, RN) Monitor Mode: External US (Courtney Corysmann, RN) FHR Baseline Rate : 140 (Courtney Kossmann, RN) Decelerations: None (Courtney Kossmann, RN) Datetime: 11/11/2016 06:45 Monitor Mode: External; Palpation (Courtney Kossmann, RN) Frequency (min): 0.5-6 (Courtney Kossmann, RN) Quality: Mild (Courtney Kossmann, RN) Duration (sec): 50-110 (Courtney Kossmann, RN) Resting Tone (Palpate): Relaxed (Courtney Kossmann, RN) Monitor Mode: External US (Courtney Mancia RN) FHR Baseline Rate : 140 (Courtney Mancia RN) Variability: Moderate 6-25 bpm (Courtney Mancia RN) Accelerations: 10X10 (Courtney Mancia RN) Decelerations: None (Courtney Mancia RN) Datetime: 11/11/2016 06:36 NBP Sys/Angela/Mean (mmHg): 131 (QS system process) : 78 (QS system process) : 100 (QS system process) Pulse: 83 (QS system process) LaborFlag: Labor (QS system process) Datetime: 11/11/2016 06:30 Monitor Mode: External; Palpation (Courtney Mancia RN) Frequency (min): 3-4 (Courtney Mancia RN) Quality: Mild (Courtney Mancia RN) Duration (sec): 50-80 (Courtney Mancia RN) Resting Tone (Palpate): Relaxed (Courtney Kossmann, RN) Monitor Mode: External US (Courtney Kossmann, RN) FHR Baseline Rate : 145 (Courtney Kossmann, RN) Variability: Moderate 6-25 bpm (Courtney Kossmann, RN) Decelerations: None (Courtney Kossmann, RN) Datetime: 11/11/2016 06:15 Monitor Mode: External; Palpation (Courtney Kossmann, RN) Frequency (min): 2-6 (Courtney Kossmann, RN) Quality: Mild (Courtney Kossmann, RN) Duration (sec): 60-100 (Courtney Kossmann, RN) Resting Tone (Palpate): Relaxed (Courtney Kossmann, RN) Monitor Mode: External US (Courtney Kossmann, RN) FHR Baseline Rate : 140 (Courtney Kossmann, RN) Variability: Moderate 6-25 bpm (Courtney Kossmann, RN) Accelerations: 10X10 (Courtney Kossmann, RN) Decelerations: None (Courtney Kossmann, RN) Datetime: 11/11/2016 06:06 NBP Sys/Angela/Mean (mmHg): 139 (QS system process) : 88 (QS system process) : 109 (QS system process) Pulse: 92 (QS system process) LaborFlag: Labor (QS system process) Datetime: 11/11/2016 06:00 Monitor Mode: External; Palpation (Courtney Mancia, RN) Frequency (min): 3-4 (Courtney Mancia, RN) Quality: Mild (Courtney Mancia, RN) Duration (sec): 50-90 (Courtney Mancia, RN) Resting Tone (Palpate): Relaxed (Courtney Mancia, RN) Monitor Mode: External US (Courtney Mancia, RN) FHR Baseline Rate : 145 (Courtney Mancia, RN) Variability: Moderate 6-25 bpm (Courtney Mancia, RN) Accelerations: None (Courtney Mancia, RN) Decelerations: None (Courtney Mancia, RN) Datetime: 11/11/2016 05:54 Pain Scale: 3 (Courtney Kossmann, RN) Pain Presence: Intermittent (Cuortney Mancia RN) Pain Type: Contraction (Courtney Mancia RN) Pain Location: Abdomen (Courteny Mancia RN) Pain Relief Measures: Comfort Measures (Courtney Mancia RN) Pain Coping: Talking Through Contractions; Breathing Through Contractions; Declines Medication or Epidural (Courtney Mancia RN) LaborFlag: Labor (QS system process) Datetime: 11/11/2016 05:49 Antibiotics: Penicillin IV (Units) @ (Annotations: [id number] IV ) (Courtney Mancia RN) Datetime: 11/11/2016 05:45 Monitor Mode: External; Palpation (Courtney Mancia RN) Frequency (min): 1.5-5 (Coutrney Mancia RN) Quality: Mild (Courtney Mancia RN) Duration (sec): 50-120 (Courtney Mancia RN) Resting Tone (Palpate): Relaxed (Courtney Mancia RN) Monitor Mode: External US (Courtney Kossmann, RN) FHR Baseline Rate : 140 (Courtney Raysmtammi, RN) Variability: Moderate 6-25 bpm (Courtney Corysmann, RN) Accelerations: 10X10 (Courtney Corysmann, RN) Decelerations: Early (Courtney Corysmann, RN) Datetime: 11/11/2016 05:36 NBP Sys/Angela/Mean (mmHg): 135 (QS system process) : 73 (QS system process) : 98 (QS system process) Pulse: 87 (QS system process) Respirations: 16 (Courtney Mancia, RN) Temperature (F): 98.3 (Courtneyherbert Mancia, RN) Temperature (C): 36.8 (QS system process) Temperature Route: Oral (Courtney Wadeann, RN) LaborFlag: Labor (QS system process) Datetime: 11/11/2016 05:30 Monitor Mode: External; Palpation (Courtney Mancia, RN) Frequency (min): 1.5-7 (Courtney Mancia, RN) Quality: Mild (Courtney Kossmann, RN) Duration (sec): 60-90 (Courtney Kossmann, RN) Resting Tone (Palpate): Relaxed (Courtney Kossmann, RN) Monitor Mode: External US (Courtney Kossmann, RN) FHR Baseline Rate : 140 (Courtney Kossmann, RN) Variability: Moderate 6-25 bpm (Courtney Kossmann, RN) Accelerations: 15X15 (Courtney Kossmann, RN) Decelerations: None (Courtney Kossmann, RN) Datetime: 11/11/2016 05:15 Monitor Mode: External; Palpation (Courtney Kossmann, RN) Frequency (min): 2-4 (Courtney Kossmann, RN) Quality: Mild (Courtney Kossmann, RN) Duration (sec): 50-90 (Courtney Kossmann, RN) Resting Tone (Palpate): Relaxed (Courtney Kossmann, RN) Monitor Mode: External US (Courtney Kossmann, RN) FHR Baseline Rate : 140 (Courtney Kossmann, RN) Variability: Moderate 6-25 bpm (Courtney Kossmann, RN) Accelerations: 15X15 (Courtney Kossmann, RN) Decelerations: Early (Courtney Kossmann, RN) Datetime: 11/11/2016 05:06 NBP Sys/Angela/Mean (mmHg): 139 (QS system process) : 84 (QS system process) : 107 (QS system process) Pulse: 88 (QS system process) LaborFlag: Labor (QS system process) Datetime: 11/11/2016 05:01 Monitor Mode: External; Palpation (Courtney Mancia, RN) Frequency (min): 1.5-6 (Courtney Mancia, RN) Quality: Mild (Courtney Mancia, RN) Duration (sec): 40-90 (Courtney Mancia, RN) Resting Tone (Palpate): Relaxed (Courtney Mancia, RN) Monitor Mode: External US (Courtney Mancia, RN) FHR Baseline Rate : 135 (Courtney Mancia, RN) Variability: Moderate 6-25 bpm (Courtney Mauroann, RN) Accelerations: 15X15 (Courtney Wadeann, RN) Decelerations: None (Courtney Mancia, RN) Datetime: 11/11/2016 04:45 Monitor Mode: External; Palpation (Courtney Kossmann, RN) Frequency (min): 1-6 (Courtney Kossmann, RN) Quality: Mild (Courtney Kossmann, RN) Duration (sec): 40-100 (Courtney Kossmann, RN) Resting Tone (Palpate): Relaxed (Courtney Kossmann, RN) Monitor Mode: External US (Courtney Kossmann, RN) FHR Baseline Rate : 140 (Courtney Kossmann, RN) Variability: Moderate 6-25 bpm (Courtney Kossmann, RN) Accelerations: 10X10 (Courtney Kossmann, RN) Decelerations: None (Courtney Kossmann, RN) Datetime: 11/11/2016 04:30 Monitor Mode: External; Palpation (Courtney Kossmann, RN) Frequency (min): 1-5 (Courtney Kossmann, RN) Quality: Mild (Courtney Kossmann, RN) Duration (sec): 40-110 (Courtney Kossmann, RN) Resting Tone (Palpate): Relaxed (Courtney Kossmann, RN) Monitor Mode: External US (Courtney Kossmann, RN) FHR Baseline Rate : 140 (Courtney Kossmann, RN) Variability: Moderate 6-25 bpm (Courtney Kossmann, RN) Accelerations: 15X15 (Courtney Kossmann, RN) Decelerations: None (Courtney Kossmann, RN) Datetime: 11/11/2016 04:15 Monitor Mode: External; Palpation (Courtney Kossmann, RN) Frequency (min): rre (Courtney Coyrsmann, RN) Quality: Mild (Courtney Corysmann, RN) Duration (sec): 50-90 (Courtney Corysmann, RN) Resting Tone (Palpate): Relaxed (Courtney Kossmann, RN) Monitor Mode: External US (Courtney Corysmann, RN) FHR Baseline Rate : 135 (Courtney Kossmann, RN) Variability: Moderate 6-25 bpm (Courtney Kossmann, RN) Accelerations: 15X15 (Courtney Kossmann, RN) Decelerations: None (Courtney Kossmann, RN) Datetime: 11/11/2016 04:07 NBP Sys/Angela/Mean (mmHg): 136 (QS system process) : 89 (QS system process) : 108 (QS system process) Pulse: 95 (QS system process) Respirations: 16 (Courtney Mancia RN) Temperature (F): 98.3 (Courtney Mancia RN) Temperature (C): 36.8 (QS system process) Temperature Route: Oral (Courtney Mancia RN) Pain Scale: 1 (Courtney Mancia RN) Pain Presence: Intermittent (Courtney Mancia RN) Pain Type: Contraction (Courtney Mancia RN) Pain Location: Abdomen (Courtney Mancia RN) Pain Relief Measures: Comfort Measures (Courtney Mancia RN) Pain Coping: Declines Medication or Epidural (Courtney Mancia RN) LaborFlag: Labor (QS system process) Datetime: 11/11/2016 04:05 Cervical Ripening Agents: Cytotec @ (Annotations: 50mcg po ) (Courtney Mancia RN) Datetime: 11/11/2016 04:01 Monitor Mode: External; Palpation (Courtney Mancia RN) Frequency (min): none (Courtney Kossmann, RN) Resting Tone (Palpate): Relaxed (Courtney Mancia, RN) Monitor Mode: External US (Courtney Mancia RN) FHR Baseline Rate : 130 (Courtney Mancia, RN) Variability: Moderate 6-25 bpm (Courtney Mancia, RN) Accelerations: 10X10 (Courtney Mancia, RN) Decelerations: None (Courtney Mancia, RN) Datetime: 11/11/2016 03:45 Communication Comments: Discussed poc with dr rawls. plans to give cytotec po x 1 dose (Courtney Mancia RN) Datetime: 11/11/2016 03:36 NBP Sys/Angela/Mean (mmHg): 129 (QS system process) : 72 (QS system process) : 95 (QS system process) Pulse: 88 (QS system process) LaborFlag: Labor (QS system process) Datetime: 11/11/2016 03:30 Monitor Mode: External; Palpation (Courteny Mancia, RN) Frequency (min): rare (Courtney Mancia, RN) Quality: Mild (Courtney Mauroann, RN) Duration (sec): 50-60 (Courtneyherbert Mancia, RN) Resting Tone (Palpate): Relaxed (Courtney Mancia, RN) Monitor Mode: External US (Courtney Mancia, RN) FHR Baseline Rate : 135 (Courtneyherbert Mancia, RN) Variability: Moderate 6-25 bpm (Courtneyherbert Mancia, RN) Decelerations: None (Courtneyherbert Mancia, RN) Datetime: 11/11/2016 03:06 NBP Sys/Angela/Mean (mmHg): 130 (QS system process) : 75 (QS system process) : 97 (QS system process) Pulse: 87 (QS system process) LaborFlag: Labor (QS system process) Datetime: 11/11/2016 03:01 Monitor Mode: External; Palpation (Courtney Corysmann, RN) Frequency (min): irregular (Courtney Corysmann, RN) Quality: Mild (Courtney Kossmann, RN) Duration (sec): 40-60 (Courtney Kossmann, RN) Resting Tone (Palpate): Relaxed (Courtney Corysmann, RN) Monitor Mode: External US (Courtney Corysmann, RN) FHR Baseline Rate : 140 (Courtney Kossmann, RN) Variability: Moderate 6-25 bpm (Courtney Kossmann, RN) Accelerations: 15X15 (Courtney Kossmann, RN) Decelerations: None (Courtney Kossmann, RN) Datetime: 11/11/2016 02:36 NBP Sys/Angela/Mean (mmHg): 139 (QS system process) : 79 (QS system process) : 103 (QS system process) Pulse: 91 (QS system process) LaborFlag: Labor (QS system process) Datetime: 11/11/2016 02:30 Monitor Mode: External; Palpation (Courtney Kossmann, RN) Frequency (min): irregular (Courtney Kossmann, RN) Quality: Mild (Courtney Kossmann, RN) Duration (sec): 30-70 (Courtney Kossmann, RN) Resting Tone (Palpate): Relaxed (Courtney Kossmann, RN) Monitor Mode: External US (Courtney Corysmann, RN) FHR Baseline Rate : 130 (Courtney Kossmann, RN) Variability: Moderate 6-25 bpm (Courtney Kossmann, RN) Accelerations: 15X15 (Courtney Kossmann, RN) Decelerations: None (Courtney Kossmann, RN) Datetime: 11/11/2016 02:06 NBP Sys/Angela/Mean (mmHg): 132 (QS system process) : 87 (QS system process) : 105 (QS system process) Pulse: 90 (QS system process) LaborFlag: Labor (QS system process) Datetime: 11/11/2016 02:00 Monitor Mode: External; Palpation (Courtney Kossmann, RN) Frequency (min): 3-4 (Courtney Kossmann, RN) Quality: Mild (Courtney Kossmann, RN) Duration (sec): 30-110 (Courtney Kossmann, RN) Resting Tone (Palpate): Relaxed (Courtney Kossmann, RN) Monitor Mode: External US (Courtney Kossmann, RN) FHR Baseline Rate : 130 (Courtney Kossmann, RN) Variability: Moderate 6-25 bpm (Courtney Kossmann, RN) Accelerations: 10X10 (Courtney Kossmann, RN) Decelerations: None (Courtney Kossmann, RN) Datetime: 11/11/2016 01:58 Teaching Comments: discussed at length with patient things to report including signs of infection, and what to report in regards to her fluid. (Courtney Kossmann, RN) Datetime: 11/11/2016 01:45 Monitor Mode: External; Palpation (Courtney Corysmann, RN) Frequency (min): 2-4 (Courtney Corysmann, RN) Quality: Mild (Courtney Kossmann, RN) Duration (sec): 30-60 (Courtney Kossmann, RN) Resting Tone (Palpate): Relaxed (Courtney Kossmann, RN) Monitor Mode: External US (Courtney Kossmann, RN) FHR Baseline Rate : 140 (Courtney Kossmann, RN) Variability: Moderate 6-25 bpm (Courtney Kossmann, RN) Decelerations: None (Courtney Kossmann, RN) Datetime: 11/11/2016 01:40 Antibiotics: Penicillin IV (Units) @ (Annotations: [id number] IV) (Courtney Wadeann, RN) Datetime: 11/11/2016 01:36 NBP Sys/Angela/Mean (mmHg): 142 (QS system process) : 83 (QS system process) : 107 (QS system process) Pulse: 92 (QS system process) Respirations: 18 (Courtney Mancia RN) Temperature (F): 97.8 (Courtney Mancia RN) Temperature (C): 36.6 (QS system process) Temperature Route: Oral (Courtney Mancia RN) Pain Scale: 1 (Courtney Mancia RN) Pain Presence: Intermittent (Courtney Mancia RN) Pain Type: Contraction (Courtney Mancia RN) Pain Location: Abdomen (Courtney Mancia RN) Pain Relief Measures: Comfort Measures (Courtney Mancia RN) Pain Coping: Declines Medication or Epidural (Courtney Mancia RN) LaborFlag: Labor (QS system process) Datetime: 11/11/2016 01:30 Monitor Mode: External; Palpation (Courtney Mancia RN) Frequency (min): irregular (Courtney Mancia RN) Quality: Mild (Courtney Mancia RN) Duration (sec): 50-80 (Courtney Mancia RN) Resting Tone (Palpate): Relaxed (Courtney Mancia RN) Monitor Mode: External US (Courtney Mancia RN) FHR Baseline Rate : 130 (Courtney Mancia RN) Variability: Moderate 6-25 bpm (Courtney Mancia RN) Accelerations: 15X15 (Courtney Mancia RN) Decelerations: None (Courtney Mancia RN) Cervical Ripening Agents: no cervidil present after SROM and patient using the bathroom. vaginal area and bed was searched with no evidence. Patient stated it may have fallen out in the bathroom. Copious amount of fluid noted. (Courtney Mancia RN) Communication Comments: Dr. Rawls notified of SROM, SVE, and contraction pattern. Plans to monitor and reevaluate SVE at 0400 to determine next step. Restart PCN protocol (Courtney Mancia RN) Datetime: 11/11/2016 01:15 Dilatation (cm): 1.0 (Courtney Mancia RN) Effacement (%): 0 (Courtney Mancia RN) Station: -2 (Courtney Mancia RN) Exam by: JIM Mancia (Courtney Mancia RN) Membrane Status: Ruptured (Courtney Mancia RN) Membranes Ruptured Date/Time: 11/11/2016 01:15 (Courtney Mancia RN) Membranes Rupture Method: Spontaneous (Courtney Mancia RN) Amniotic Fluid Color: Clear (Courtney Mancia RN) Amniotic Fluid Amount: Copious (Courtney Mancia RN) Amniotic Fluid Odor: Normal (Courtney Mancia RN) Vaginal Bleeding: None (Courtney Mancia RN) Datetime: 11/11/2016 01:12 Hygiene: Underpad Changed; Peripad Changed; Linens Changed (Courtney Mancia RN) I/O Interventions: Up to BR (Courtney Mancia RN) Datetime: 11/11/2016 01:06 NBP Sys/Angela/Mean (mmHg): 110 (QS system process) : 58 (QS system process) : 78 (QS system process) Pulse: 85 (QS system process) LaborFlag: Labor (QS system process) Datetime: 11/11/2016 01:01 Monitor Mode: External; Palpation (Courtney Mancia RN) Frequency (min): irregular (Courtney Mancia RN) Frequency (min): irregular (Courtney Mancia RN) Quality: Mild (Courtney Mancia RN) Duration (sec): 30-50 (Courtney Mancia, RN) Resting Tone (Palpate): Relaxed (Courtney Mancia RN) Monitor Mode: External US (Courtney Mancia RN) FHR Baseline Rate : 130 (Courtney Mancia, RN) Variability: Moderate 6-25 bpm (Courtney Mancia, RN) Accelerations: 15X15 (Courtney Mancia, RN) Decelerations: None (Courtney Mancia, RN) Datetime: 11/11/2016 00:36 NBP Sys/Angela/Mean (mmHg): 116 (QS system process) : 69 (QS system process) : 83 (QS system process) Pulse: 83 (QS system process) LaborFlag: Labor (QS system process) Datetime: 11/11/2016 00:30 Monitor Mode: External; Palpation (Courtney Mancia RN) Frequency (min): uterine irritability (Courtney Mancia, RN) Resting Tone (Palpate): Relaxed (Courtney Mancia RN) Monitor Mode: External US (Courtney Mancia RN) FHR Baseline Rate : 140 (Courtney Mancia RN) Variability: Moderate 6-25 bpm (Courtney Mancia RN) Accelerations: 15X15 (Courtney Mancia RN) Decelerations: None (Courtney Mancia RN) Datetime: 11/11/2016 00:21 Monitor Interventions for UA: [place] Adjusted (Courtney Mancia RN) Datetime: 11/11/2016 00:06 NBP Sys/Angela/Mean (mmHg): 116 (QS system process) : 61 (QS system process) : 83 (QS system process) Pulse: 96 (QS system process) Respirations: 16 (Courtney Mancia RN) Temperature (F): 98.1 (Courtney Mancia RN) Temperature (C): 36.7 (QS system process) Temperature Route: Oral (Courtney Mancia RN) Pain Scale: 0 (Courtney Mancia RN) Pain Presence: None/Denies (Courtney Mancia RN) Pain Type: N/A (Courtney Mancia RN) LaborFlag: Labor (QS system process) Datetime: 11/11/2016 00:01 Monitor Mode: External; Palpation (Courtney Mancia RN) Frequency (min): irregular (Courtney Mancia, RN) Quality: Mild (Courtney Mancia, RN) Duration (sec): 50-60 (Courtney Mancia RN) Resting Tone (Palpate): Relaxed (Courtney Mancia, RN) Monitor Mode: External US (Courtney Mancia, RN) FHR Baseline Rate : 145 (Courtney Mancia, RN) Variability: Moderate 6-25 bpm (Courtney Mancia, RN) Accelerations: 15X15 (Courtney Mancia, RN) Decelerations: None (Courtney Mancia, RN) Datetime: 11/10/2016 23:36 NBP Sys/Angela/Mean (mmHg): 122 (QS system process) : 57 (QS system process) : 82 (QS system process) Pulse: 95 (QS system process) LaborFlag: Labor (QS system process) Datetime: 11/10/2016 23:30 Monitor Mode: External; Palpation (Courtney Mancia, RN) Frequency (min): irregular (Courtneyherbert Wadeann, RN) Quality: Mild (Courtney Corysmann, RN) Duration (sec): 40-70 (Courtneyherbert Mancia, RN) Resting Tone (Palpate): Relaxed (Courtney Mancia, RN) Monitor Mode: External US (Courtney Mancia, RN) FHR Baseline Rate : 140 (Courtney Corysmann, RN) Variability: Moderate 6-25 bpm (Courtney Kossmann, RN) Accelerations: 15X15 (Courtney Kossmann, RN) Decelerations: None (Courtney Corysmann, RN) Datetime: 11/10/2016 23:06 NBP Sys/Angela/Mean (mmHg): 140 (QS system process) : 86 (QS system process) : 105 (QS system process) Pulse: 91 (QS system process) LaborFlag: Labor (QS system process) Datetime: 11/10/2016 23:00 Monitor Mode: External; Palpation (Courtney Mancia, RN) Frequency (min): irregular (Courtney Mauroann, RN) Quality: Mild (Courtney Corysmann, RN) Duration (sec): 30-70 (Courtney Mauroann, RN) Resting Tone (Palpate): Relaxed (Courtneyherbert Wadeann, RN) Monitor Mode: External US (Courtney Corysmann, RN) FHR Baseline Rate : 140 (Courtney Kossmann, RN) Variability: Moderate 6-25 bpm (Courtney Kossmann, RN) Accelerations: 15X15 (Courtney Kossmann, RN) Decelerations: None (Courtney Corysmann, RN) Datetime: 11/10/2016 22:51 Cervical Ripening Agents: Cervidil (Annotations: 10mg per vagina ) (Courtney Mancia, RN) Datetime: 11/10/2016 22:50 Dilatation (cm): 1.0 (Courtney Mancia RN) Effacement (%): 0 (Courtney Mancia RN) Station: -2 (Courtney Mancia RN) Exam by: JIM Mancia (Courtney Mancia RN) Datetime: 11/10/2016 22:30 Monitor Mode: External; Palpation (Courtney Mancia RN) Frequency (min): rare with uterine irritability (Courtney Mancia RN) Quality: Mild (Courtney Mancia RN) Duration (sec): 30-60 (Courtney Mancia, RN) Resting Tone (Palpate): Relaxed (Courtney Mancia, JIM) Monitor Mode: External US (Courtney Mancia RN) FHR Baseline Rate : 140 (Courtney Mancia RN) Variability: Moderate 6-25 bpm (Courtney Mancia, RN) Accelerations: 15X15 (Courtney Mancia, RN) Decelerations: None (Courtney Mancia RN) Datetime: 11/10/2016 22:29 I/O Interventions: Up to BR (Courtney Gavino, RN) Datetime: 11/10/2016 22:06 NBP Sys/Angela/Mean (mmHg): 126 (QS system process) : 73 (QS system process) : 95 (QS system process) Pulse: 101 (QS system process) LaborFlag: Labor (QS system process) Datetime: 11/10/2016 22:01 Monitor Mode: External; Palpation (Courtney Mancia, RN) Frequency (min): irregular (Courtney Kossmann, RN) Quality: Mild (Courtney Mauroann, RN) Duration (sec): 40-70 (Courtneyherbert Wadeann, RN) Resting Tone (Palpate): Relaxed (Courtney Mancia, RN) Monitor Mode: External US (Courtney Mancia, RN) FHR Baseline Rate : 140 (Courtney Wadeann, RN) Variability: Moderate 6-25 bpm (Courtneyherbert Wadeann, RN) Accelerations: 15X15 (Courtney Kossmann, RN) Decelerations: None (Courtney Corysmann, RN) Datetime: 11/10/2016 21:37 NBP Sys/Angela/Mean (mmHg): 137 (QS system process) : 87 (QS system process) : 106 (QS system process) Pulse: 96 (QS system process) LaborFlag: Labor (QS system process) Datetime: 11/10/2016 21:30 Monitor Mode: External; Palpation (Courtney Mancia, RN) Frequency (min): 1.5-5 (Courtney Mancia, RN) Quality: Mild (Courtney Mancia, RN) Duration (sec): 50-70 (Courtney Mancia, RN) Resting Tone (Palpate): Relaxed (Courtney Manica, RN) Monitor Mode: External US (Courtney Mancia, RN) FHR Baseline Rate : 145 (Courtney Mancia, RN) Variability: Moderate 6-25 bpm (Courtney Mancia, RN) Accelerations: 15X15 (Courtney Mancia, RN) Decelerations: None (Courtney Mancia, RN) Datetime: 11/10/2016 21:06 NBP Sys/Angela/Mean (mmHg): 132 (QS system process) : 76 (QS system process) : 98 (QS system process) Pulse: 98 (QS system process) LaborFlag: Labor (QS system process) Datetime: 11/10/2016 21:01 Monitor Mode: External; Palpation (Courtney Mancia, RN) Frequency (min): irregular (Courtney Mancia, RN) Quality: Mild (Courtney Wadeann, RN) Duration (sec): 40-70 (Courtney Mancia, RN) Resting Tone (Palpate): Relaxed (Courtney Mancia, RN) Monitor Mode: External US (Courtney Mancia, RN) FHR Baseline Rate : 145 (Courtney Mancia, RN) Variability: Moderate 6-25 bpm (Courtneyherbert Wadeann, RN) Accelerations: 15X15 (Courtney Wadeann, RN) Decelerations: None (Courtney Wadeann, RN) Datetime: 11/10/2016 20:36 NBP Sys/Angela/Mean (mmHg): 121 (QS system process) : 66 (QS system process) : 88 (QS system process) Pulse: 98 (QS system process) LaborFlag: Labor (QS system process) Datetime: 11/10/2016 20:30 Monitor Mode: External; Palpation (Courtney Mancia, RN) Frequency (min): 1-5 (Courtney Mancia, RN) Quality: Mild (Courtney Kossmann, RN) Duration (sec): 30-70 (Courtney Mancia RN) Resting Tone (Palpate): Relaxed (Courtney Mancia RN) Monitor Mode: External US (Courtney Mancia RN) FHR Baseline Rate : 145 (Courtney Mancia RN) Variability: Moderate 6-25 bpm (Courtney Mancia RN) Accelerations: 10X10 (Courtney Mancia RN) Decelerations: None (Courtney Mancia RN) Datetime: 11/10/2016 20:06 NBP Sys/Angela/Mean (mmHg): 131 (QS system process) : 78 (QS system process) : 98 (QS system process) Pulse: 99 (QS system process) Respirations: 18 (Courtney Mancia RN) Temperature (F): 98.4 (Courtney Mancia RN) Temperature (C): 36.9 (QS system process) Temperature Route: Oral (Courtney Mancia RN) Pain Scale: 1 (Courtney Mancia RN) Pain Presence: Intermittent (Courtney Mancia RN) Pain Type: Contraction (Courtney Mancia RN) Pain Location: Abdomen (Courtney Mancia RN) Pain Relief Measures: Comfort Measures (Courtney Mancia RN) Pain Coping: Declines Medication or Epidural (Courtney Mancia RN) LaborFlag: Labor (QS system process) Datetime: 11/10/2016 20:01 Monitor Mode: External; Palpation (Courtney Mancia, RN) Frequency (min): irregular (Courtney Mancia, RN) Quality: Mild (Courtney Wadeann, RN) Duration (sec): 30-80 (Courtney Mancia, RN) Resting Tone (Palpate): Relaxed (Courtney Mancia, RN) Monitor Mode: External US (Courtney Mancia, RN) FHR Baseline Rate : 145 (Courtney Mancia, RN) Variability: Moderate 6-25 bpm (Courtney Mancia, RN) Accelerations: 10X10 (Courtney Mancia, RN) Decelerations: None (Courtney Mancia, RN) Datetime: 11/10/2016 20:00 Communication Comments: Discussed with Dr. Nicolas sheppard Penicillin at this time. agreed. (Courtney Mancia RN)
[2016-11-11] MEDS ORDERED: OXYTOCIN/NORMAL SALINE 1,000 ML IV PRN (08:33)
[2016-11-11] MEDS ORDERED: OXYTOCIN/NORMAL SALINE 0 UNIT/0 ML RTUINJ ONE (08:39)
--- NOTE | 2016-11-11 09:19 | L&D Progress Notes ---
PROGRESS NOTES Datetime Report Generated by CPN: 11/11/2016 09:19 PROGRESS NOTE Impression: Gest. HTN/PreEclampsia/Eclampsia Impression: Gest. HTN/PreEclampsia/Eclampsia Plan: Continue Present Management Plan: Continue Present Management Informed Consent Obtained: Vaginal Delivery; Section Delivery; Induction of Labor; Risks, Benefits and Alternatives Discussed Vital Signs : Reviewed Comment: Pt still fairly comfortable. Will recheck preeclampsia labs, cont gbs prophylaxis and induction. VAGINAL EXAM Dilatation: 0 Effacement: 0 Station: -3 MEMBRANES Membranes: Ruptured FETUS A Monitoring: External US FHR Category: Category I Presentation: Vertex SIGNATURE SIGNATURE: [id number] SIGNATURE: [id number] Signature: with User ID: [email or web address]
[2016-11-11 09:31] LABS: ABSOLUTE EOSINOPHILS # (AUTO) 0.1 10^3/uL (0.0-0.6); ABSOLUTE LYMPHOCYTES (AUTO) 1.4 10^3/uL (0.5-4.7); ABSOLUTE NEUT (AUTO) 11.6 10^3/uL (1.7-8.2); BASOPHILS % (AUTO) 0.2 % (0-2); EOSINOPHILS % (AUTO) 0.4 % (0-6); HEMATOCRIT 34.5 % (36.0-47.0); HEMOGLOBIN 11.8 g/dL (12.0-15.5); HGB HCT DIFFERENCE 0.9; LYMPHOCYTES % (AUTO) 9.7 % (13-45); MEAN CORPUSCULAR HEMOGLOBIN 27.3 pg (27.0-33.4); MEAN CORPUSCULAR HGB CONC 34.2 g/dL (32.0-36.0); MEAN CORPUSCULAR VOLUME 80 fl (80-97); MONOCYTES % (AUTO) 7.4 % (3-13); RED BLOOD COUNT 4.33 10^6/uL (3.72-5.28); RED CELL DISTRIBUTION WIDTH 13.8 % (11.5-14.0); SEGMENTED NEUTROPHILS % (AUTO) 82.3 % (42-78); WHITE BLOOD COUNT 14.1 10^3/uL (4.0-10.5)
[2016-11-11 09:48] LABS: ALANINE AMINOTRANSFERASE 23 U/L (9-52); ALBUMIN 3.7 g/dL (3.5-5.0); ALKALINE PHOSPHATASE 139 U/L (38-126); ANION GAP 14 (5-19); ASPARTATE AMINO TRANSFERASE 13 U/L (14-36); BILIRUBIN,DIRECT 0.1 mg/dL (0.0-0.4); BILIRUBIN,TOTAL 0.6 mg/dL (0.2-1.3); BLOOD UREA NITROGEN 5 mg/dL (7-20); CALCIUM 9.2 mg/dL (8.4-10.2); CARBON DIOXIDE 20 mmol/L (22-30); CHLORIDE 105 mmol/L (98-107); CREATININE RESULT 0.49 mg/dL (0.52-1.25); GLUCOSE 87 mg/dL (75-110); LDH 391 U/L (313-618); POTASSIUM 3.7 mmol/L (3.6-5.0); SODIUM 138.6 mmol/L (137-145); TOTAL PROTEIN 6.4 g/dL (6.3-8.2)
[2016-11-11] MEDS ORDERED: FENTANYL CITRATE INJ/PF 100 MCG/2 ML AMPUL ONE (11:20)
[2016-11-11] MEDS ORDERED: FENTANYL/BUPIVACAINE/NS/PF 200 MCG/100 ML RTUINJ EPI ONE (11:21)
[2016-11-11] MEDS ORDERED: BUPIVACAINE HCL 0.25 % INJ/PF (2.5 MG/1 ML) 30 ML VIAL ONE (11:21)
[2016-11-11] MEDS ORDERED: EPHEDRINE SULFATE INJ 50 MG/1 ML AMPULE ONE (11:21)
[2016-11-11] MEDS ORDERED: PHENYLEPHRINE HCL INJ/PF 10 MG/1 ML SDV ONE (11:21)
[2016-11-11] MEDS ORDERED: LIDOCAINE 1% INJ-PF (10 MG/ML) 30 ML SDV ONE (12:47)
[2016-11-11] MEDS ORDERED: MISOPROSTOL 0.2 MG TABLET ONE (12:47)
[2016-11-11] MEDS ORDERED: OXYTOCIN/NORMAL SALINE 20 UNIT/1,000 ML RTUINJ ONE (12:47)
[2016-11-11] MEDS ORDERED: MEASLES,MUMPS&RUBELLA VACC/PF 0.5 ML VIAL SUBCUT PRN (15:56)
[2016-11-11] MEDS ORDERED: ACETAMINOPHEN WITH CODEINE #3 TABLET PO PRN ×2 (15:56)
[2016-11-11] MEDS ORDERED: BENZOCAINE/MENTHOL AEROSOL SPRAY 56 ML TOP PRN (15:56)
[2016-11-11] MEDS ORDERED: ZOLPIDEM TARTRATE 5 MG TABLET PO PRN (15:56)
[2016-11-11] MEDS ORDERED: DIBUCAINE 1% OINTMENT 28 GM TP PRN (15:56)
[2016-11-11] MEDS ORDERED: DIPH/PERTUSS(ACELL)/TETANUS VAC/PF 0.5 ML SYR (>=10YO) IM PRN (15:56)
[2016-11-11] MEDS: FERROUS SULFATE 325 MG TABLET PO SCH (17:30)
[2016-11-11] MEDS: DOCUSATE SODIUM 100 MG CAPSULE PO SCH (17:30)
[2016-11-11] MEDS: IBUPROFEN 800 MG TABLET PO SCH (22:10)
[2016-11-12] MEDS: IBUPROFEN 800 MG TABLET PO SCH ×3 (06:02→22:06)
[2016-11-12 06:29] LABS: HEMATOCRIT 29.7 % (36.0-47.0); HEMOGLOBIN 10.1 g/dL (12.0-15.5); HGB HCT DIFFERENCE 0.6; MEAN CORPUSCULAR HEMOGLOBIN 27.1 pg (27.0-33.4); MEAN CORPUSCULAR HGB CONC 33.9 g/dL (32.0-36.0); MEAN CORPUSCULAR VOLUME 80 fl (80-97); RED BLOOD COUNT 3.72 10^6/uL (3.72-5.28); WHITE BLOOD COUNT 12.8 10^3/uL (4.0-10.5)
--- NOTE | 2016-11-12 09:15 | PDOC PROGRESS REPORT ---
Subjective-OB Subjective: Post Delivery Day: 1 21 year old. Denies any needs at this time, states lochia is stable, pain well controlled, voiding without difficulty, denies headache, visual dist., epigastric pain. Physical Exam (OB) Vital Signs: Temp Pulse Resp BP Pulse Ox 97.8 F 92 16 132/85 H 99 11/12/16 08:00 11/12/16 08:00 11/12/16 08:00 11/12/16 08:00 11/12/16 08:00 - PIH/Pre-Eclampsia DTR's: 1 + Clonus: Negative Headache: Absent Epigastric Pain: No Visual Changes: No - Lochia Lochia Amount: Small 10-25 ml Lochia Color: Rubra/Red - Abdomen Description: Soft, Round Hernia Present: No Fundal Description: Firm, Midline Fundal Height: u/u - u/2 Objective-Diagnostic Laboratory: 11/12/16 06:15 11/11/16 09:20 11/11/16 11/11/16 11/12/16 09:20 09:20 06:15 WBC 14.1 H 12.8 H RBC 4.33 3.72 Hgb 11.8 L 10.1 L Hct 34.5 L 29.7 L MCV 80 80 MCH 27.3 27.1 MCHC 34.2 33.9 RDW 13.8 14.0 Plt Count 150 132 L Seg Neutrophils % 82.3 H Lymphocytes % 9.7 L Monocytes % 7.4 Eosinophils % 0.4 Basophils % 0.2 Absolute Neutrophils 11.6 H Absolute Lymphocytes 1.4 Absolute Monocytes 1.0 Absolute Eosinophils 0.1 Absolute Basophils 0.0 Sodium 138.6 Potassium 3.7 Chloride 105 Carbon Dioxide 20 L Anion Gap 14 BUN 5 L Creatinine 0.49 L Est GFR ( Amer) > 60 Est GFR (Non-Af Amer) > 60 Glucose 87 Calcium 9.2 Total Bilirubin 0.6 AST 13 L ALT 23 Alkaline Phosphatase 139 H Total Protein 6.4 Albumin 3.7 Assessment and Plan(PN) - Assessment and Plan (1) Pre-eclampsia Qualifiers: Trimester: unspecified trimester Qualified Code(s): O14.90 - Unspecified pre-eclampsia, unspecified trimester Is this a current diagnosis for this admission?: YesPlan: monitor bp and s/sx (2) Vacuum extractor delivery, delivered Is this a current diagnosis for this admission?: YesPlan: routine pp care - Time Spent with Patient Time with patient: Less than 15 minutes Critical Time spent with patient: Less than 15 minutes Medications reviewed and adjusted accordingly: Yes - Disposition Anticipated Discharge: Home Within: within 24 hours
[2016-11-12] MEDS: PRENATAL VITAMIN W-O CA NO5/FE FUMARATE/FA CAPSULE PO SCH (09:25)
[2016-11-12] MEDS: FERROUS SULFATE 325 MG TABLET PO SCH ×2 (09:25→20:00)
[2016-11-12] MEDS: SENNOSIDES/DOCUSATE 8.6-50 MG 1 EACH TABLET PO SCH (09:25)
[2016-11-12] MEDS: DOCUSATE SODIUM 100 MG CAPSULE PO SCH ×2 (09:26→20:00)
--- NOTE | 2016-11-12 23:39 | Admission Physical ---
Datetime Report Generated by CPN: 11/12/2016 23:39 CURRENT ADMISSION Chief Complaint: Signs/Symptoms Gestational HTN Indication for Induction: Gest. HTN/PreEclampsia/Eclampsia Admit Plan: Admit to Unit; Initiate Labor Induction Protocol ALLERGIES Medication Allergies: No Medication Allergies: No Known Drug Allergies (11/10/2016) Medication Allergies: No Known Drug Allergies (11/01/2016) Medication Allergies: No Known Drug Allergies (10/26/2016) Latex: No Latex Allergies Food Allergies: denies Environmental Allergies: denies OBSTETRICAL HISTORY EDC: 12/01/2016 00:00 : 1 Para: 0 Term: 0 : 0 SAB: 0 IAB: 0 Ectopic: 0 Livin Cesareans: 0 VBACs: 0 Multiple Births: 0 Gestational Diabetes: No Rh Sensitization: No Incompetent Cervix: No RUDDY: No Infertility: No ART Treatment: No Uterine Anomaly: No IUGR: No Hx Previous C/S: No Macrosomia: No Hx Loss/Stillborn: No PIH: No Hx : No Placenta Previa/Abruption: No Depression/PP Depression: No PTL/PROM: No Post Hemorrhage: No Current Procedures: Ultrasound Obstetrical History Comments: G1: current SEE RECORDS Alcohol: No Marijuana : No Cocaine: No Other Illicit Drugs: No Cigarettes: Never Smoker. [id number] MEDICAL HISTORY Diabetes: No Blood Transfusion: No Pulmonary Disease (Asthma, TB): No Breast Disease: No Hypertension: Yes Operations Specialist Surgery: No Heart Disease: No Hosp/Surgery: No Autoimmune Disorder: No Anesthetic Complications: No Kidney Disease: No Abnormal Pap Smear: No Neuro/Epilepsy: No Psychiatric Disorders: No Other Medical Diseases: No Hepatitis/Liver Disease: No Significant Family History: No Varicosities/Phlebitis: No Trauma/Violence : No Thyroid Dysfunction: No Medical History Comments: g1: ghtn INFECTIOUS HISTORY Gonorrhea: No Genital Herpes: No Chlamydia: No Tuberculosis: No Syphilis: No Hepatitis: No HIV/AIDS Exposure: No Rash or Viral Illness: No HPV: No PHYSICAL EXAM General: Normal HEENT: Normal Neurologic: Normal Thyroid: Normal Heart: Normal Lungs: Normal Breast: Deferred Back: Normal Abdomen: Normal Genitourinary Exam: Normal Extremities: Normal DTRs: Normal Pelvic Type: Adequate Vital Signs: Reviewed Details Vital Signs: Mild Range BPs VAGINAL EXAM Dilatation: 0 Effacement: 0 Station: -3 MEMBRANES Membranes: Ruptured FETUS A EGA: 37.0 Monitoring: External US FHR- Baseline: 130 Variability: Moderate 6-25bpm Accelerations: 15X15 Decelerations: None FHR Category: Category I Presentation: Vertex Admit Comment: 21yo at 37+0ega with GHTN. Vertex presentation on bedside US. Mild range BPs. No meds. GBS pos - PCN to begin at 0600. Cvx is ft/th/hi/post. Cervidil for cervical ripening. EFW 7#. Anticiapte . Plan for IOL. REassuring FWB. c/b obesity and size greater than dates but 6#8oz on US 2 wks ago PLANS FOR LABOR AND DELIVERY Labor and Delivery: None Pain Management: Epidural Feeding Preference: Breast Benefit of Breast Feed Discussed: Yes Circumcision: N/A INFORMED CONSENT Informed Consent Obtained: Vaginal Delivery; Section Delivery; Induction of Labor; Risks, Benefits and Alternatives Discussed Signature: with User ID: [email or web address]
--- NOTE | 2016-11-12 23:40 | Delivery Summary ---
Del Sum A-C Datetime Report Generated by CPN: 11/12/2016 23:39 DELIVERY PERSONNEL DELIVERY PERSONNEL: [id number] Delivery Doctor:: Kavita Foss MD Labor and Delivery Nurse:: Vee Carolina RNcurriculum assistant Nurse:: Shanna Land RN Nursery Nurse:: Catina Saldana RN Forest Fire Equipment Operator/SOLAR INSTALLER: Melquiades Bernabe, ADAPTED PHYSICAL EDUCATION TEACHER MATERNAL INFORMATION Delivery Anesthesia: Epidural Medications After Delivery: Pitocin Bolus-Please Comment Meds After Delivery Comment: Pitocin 20 units in 1000mL NSS Estimated Blood Loss (ml): 200 Maternal Complications: None Provider Comments: When pt complete and pushing at +2 station, repetitve variables to 50s to 60s noted with decreasing variabilty and reflex tachycardia. Kiwi vac applied and pulled over 2 ctxs to delivery of head KENDELL. No pop offs and max pressure 550. Total vac time 10 min due to wide spaced ctxs-pulled only with ctxs. Tight double nuchal cord noted after delivery of head-clamped and cut on perineum. Shoulders and body delivered easily. Female infant to warmer and nursery in attendance. Apgars 2, 5 and 8. Placenta spont and intact. Laceration repaired. LABOR SUMMARY EDC: 12/01/2016 00:00 No. Babies in Womb: 1 Attempted: No Labor Anesthesia: Epidural LABOR INFORMATION Reason for Induction: Gestational Hypertension Onset of Labor: 11/11/2016 11:16 Complete Dilatation: 11/11/2016 13:53 Cervical Ripening Agents: Cervidil; Cytotec @ Oxytocin: Induction Group B Beta Strep: positive Antibiotics # of Doses: 6 Antibiotics Time of Last Dose: 1341 Name of Antibiotic Given: PCN Steroids Given: None Reason Steroids Not Administered: Not Applicable MEMBRANES Membranes Rupture Method: Spontaneous Rupture of Membranes: 11/11/2016 01:15 Length of Rupture (hr): 13.28 Amniotic Fluid Color: Clear Amniotic Fluid Amount: Copious Amniotic Fluid Odor: Normal STAGES OF LABOR Stage 1 hr: 2 Stage 1 min: 37 Stage 2 hr: 0 Stage 2 min: 39 Stage 3 hr: 0 Stage 3 min: 4 Total Time in Labor hr: 3 Total Time in Labor min: 20 VAGINAL DELIVERY Episiotomy: None Laceration Extension: Second Degree Laceration Type: Vaginal Laceration Repair: Yes Laceration Repair Note: with 2-o chromic Sponge Count Correct: Yes Sharps Count Correct: Yes CSECTION DELIVERY Primary Indication: N/A Secondary Indication: N/A CSection Incidence: N/A Labor: N/A Elective: N/A CSection Incision: N/A BABY A INFORMATION Delivery Date/Time: 11/11/2016 14:32 Method of Delivery: Vaginal Born in Route : No : N/A Forceps: N/A Vacuum Extraction: Successful Shoulder Dystocia : No ASSISTED DELIVERY BABY A Indication for Assisted Delivery: multiple variable decels Catheter Prior to Procedure: No Station Vacuum/Forcep Apply: +2 Position Vacuum/Forcep Apply: Right Occipital Anterior Vacuum Number of Pulls: 5 Vacuum Number of PopOffs: 0 Vacuum Maximum Pressure Obtained: 550 Reduce Pressure btwn Ctx: No Vacuum Java Designer: kiwi Total Time Vacuum Applied: 10 min PRESENTATION/POSITION BABY A Presentation: Cephalic Cephalic Presentation: Vertex Vertex Position: Left Occipital Anterior Breech Presentation: N/A PLACENTA INFORMATION BABY A Placenta Delivery Time : 11/11/2016 14:36 Placenta Method of Delivery: Spontaneous Placenta Status: Delivered SCORES BABY A Heart Rate 1 min: >100 bpm Resp Effort 1 min: Absent Reflex Irritability 1 min: No Response Muscle Tone 1 min: Flaccid Color 1 min: Blue/Pale Resuscitation Effort 1 min: Tactile Stimulation; PPV/NCPAP SCORE 1 MIN: 2 Heart Rate 5 min: >100 bpm Resp Effort 5 min: Slow, Irregular Reflex Irritability 5 min: Grimace Muscle Tone 5 min: Some Flexion of Extremities Color 5 min: Blue/Pale Resuscitation Effort 5 min: Tactile Stimulation; PPV/NCPAP SCORE 5 MIN: 5 Heart Rate 10 min: >100 bpm Resp Effort 10 min: Good Cry Reflex Irritability 10 min: Cough or Sneeze or Pulls Away Muscle Tone 10 min: Active Motion Color 10 min: Blue/Pale Resuscitation Effort 10 min: Tactile Stimulation; Oxygen SCORE 10 MIN: 8 INFORMATION BABY A Gestational Age at Delivery: 34.1 Gestational Status: Late - 34- 36.6 Weeks Infant Outcome : Liveborn Condition : Stable Infant Sex: Female IDENTIFICATION BABY A Verification Date/Time: 11/11/2016 16:00 ID Band Number: [id number] Mother's Name Verified: Yes Infant RN Verifying Infant: B Baidy RN Additional Verifying Personnel: H Shanda RN WEIGHT/LENGTH BABY A Birthweight (gm): 2850 Infant Weight (lb): 6 Weight (oz): 5 Infant Length (in): 19.00 Length (cm): 48.26 CORD INFORMATION BABY A No. Cord Vessels: 3 Nuchal Cord : Around Neck x2, Tight Cord Blood Taken: Yes-For Eval (Mom's Blood Type - or O+) Suction: Mouth; Nose ASSESSMENT BABY A Complications: Multiple Variable Decels Physical Findings at Delivery: Caput Succedaneum; Laceration; Bruising Physical Findings- Other: laceration and bruising from kiwi Infant Respirations: Grunting Skin to Skin: No Skin to Skin Time (min): n/a Picking Supervisor/ALS Called : Yes Infant Care By: Nestor Saldana RN Transferred To: NICU BABY B INFORMATION : N/A SIGNATURES Signature: with User ID: [email or web address]
[2016-11-13 08:13] VITALS: BP 138/78
--- NOTE | 2016-11-13 08:40 | PDOC DISCHARGE SUMMARY ---
Final Diagnosis Discharge Date: 11/13/16 - Final Diagnosis (1) Pre-eclampsia Is this a current diagnosis for this admission?: Yes (2) Vacuum extractor delivery, delivered Is this a current diagnosis for this admission?: Yes (3) Gestational hypertension Is this a current diagnosis for this admission?: Yes Discharge Data - Discharge Medication Home Medications: Pnv95/Ferrous Fumarate/FA [ Formula Tablet] 1 tab PO DAILY 10/26/16 Docusate Sodium [Colace 100 mg Capsule] 100 mg PO BID #60 capsule 11/13/16 Ferrous Sulfate [Feosol 325 mg Tablet] 325 mg PO BID #60 tablet 11/13/16 Ibuprofen [Motrin 800 mg Tablet] 800 mg PO Q8 #90 tablet 11/13/16 Gestational Age: 37.1 Reason(s) for Admission: Induction of Labor, PIH, Group B Strep Positive Admission Note: ghtn Procedures: NST Intrapartum Procedure(s): Spontaneous Vaginal Delivery, Vacuum Extraction Complication(s): Laceration-Vaginal Laceration-Degree: 2nd - Data Baby 1 Female at 1 minute: 2 at 5 minutes: 5 at 10 minutes: 8 Weight: 2850 kg Home with Mother: No Complications: Yes - in nicu - Diagnosis Test Laboratory: Temp Pulse Resp BP Pulse Ox 98.0 F 85 16 138/78 H 100 11/13/16 08:10 11/13/16 08:10 11/13/16 08:10 11/13/16 08:10 11/13/16 08:10 11/09/16 11/09/16 11/10/16 22:15 22:35 19:40 RBC 4.07 4.25 Hgb 11.0 L 11.4 L Hct 32.7 L 34.3 L Urine Opiates Screen NEGATIVE 11/11/16 11/12/16 09:20 06:15 RBC 4.33 3.72 Hgb 11.8 L 10.1 L Hct 34.5 L 29.7 L Urine Opiates Screen - Discharge information/Instructions Discharge Activity: Activity As Tolerated, No Lifting Over 10 Pounds, Pelvic Rest, No tub bath Discharge Diet: Regular Disposition: HOME, SELF-CARE Follow up with: [facility] in: 1, Weeks
[2016-11-13] MEDS: IBUPROFEN 800 MG TABLET PO SCH (09:00)
[2016-11-13] MEDS: PRENATAL VITAMIN W-O CA NO5/FE FUMARATE/FA CAPSULE PO SCH (10:03)
[2016-11-13] MEDS: FERROUS SULFATE 325 MG TABLET PO SCH (10:03)
[2016-11-13] MEDS: DOCUSATE SODIUM 100 MG CAPSULE PO SCH (10:03)
[2016-11-13] MEDS: SENNOSIDES/DOCUSATE 8.6-50 MG 1 EACH TABLET PO SCH (10:03)
== END 2016-11-13 10:17 | disposition home or self-care (01) | DRG 775 ==
LOC: LR 22:05 → 2S 11-11 16:47
PROVIDERS: ADMIT Specialist; ATTEND Specialist
PROC: 10D07Z6 Extraction of Products of Conception, Vacuum, Via Natural or Artificial Opening (ICD-10-PCS; principal; 2016-11-11)
PROC: 0KQM0ZZ Repair Perineum Muscle, Open Approach (ICD-10-PCS; 2016-11-11)
PROC: 3E0P7GC Introduction of Other Therapeutic Substance into Female Reproductive, Via Natural or Artificial Opening (ICD-10-PCS; 2016-11-11)
DX: O13.4 Gestational [pregnancy-induced] hypertension without significant proteinuria, complicating childbirth (principal); O99.824 Streptococcus B carrier state complicating childbirth; O99.214 Obesity complicating childbirth; E66.9 Obesity, unspecified; O70.1 Second degree perineal laceration during delivery; O76 Abnormality in fetal heart rate and rhythm complicating labor and delivery; O62.3 Precipitate labor; O69.1XX0 Labor and delivery complicated by cord around neck, with compression, not applicable or unspecified; Z68.36 Body mass index [BMI] 36.0-36.9, adult; Z3A.37 37 weeks gestation of pregnancy; Z37.0 Single live birth
CPT/HCPCS: 36415; 80053; 80307; 81005; 83615; 84550; 85025; 85027; 86592; 86850; 86900; 86901; 88307; 94760; 99465; J2370; J2540; J2590; J3010; J3490